=== PATIENT | female | born 1945 | race Caucasian/White ===

== ENCOUNTER 2016-11-06 13:26 | Emergency (ER) | payer OTHER ==
[~2016-11-06] VITALS: Ht 162.5 cm; Wt 81.6 kg
[~2016-11-06 13:26] MED LIST: ALBUTEROL2.5 MG/0.5 INH; ANXIETY; ARTHRITIS MED; ASPERCREME76.5 GM TP; ASPIR-TRIN325 MG PO; ATARAX,VISTARIL10 MG PO; ATIVAN0.5 MG PO; B12,B-12,B 12500 MC1 PO; CEFAZOLIN1 G1 IV; CELEXA10 MG PO; CELEXA40 MG PO; CHEWABLE VITE1 CTB PO; CIPROFLOXACIN500 M4 PO; COLACE100 MG PO; COMPAZINE10 M1 PO; DEPRESSION; HUMALOG100 U/ML SC; MAPAP325 MG PO; METRONIDAZOLE500 M1 PO; MOTRIN800 MG PO; NORCO 10-325 T1 EACH PO; NORCO 5-325 TA1 EACH; Percocet 325 MG1 TAB PO; SENNA S PO; SLEEPING; TYLENOL325 M2 PO; VICODIN 5/500 505 MG PO; VISTARIL25 MG PO; VITAMIN C500 M6 PO; VITAMIN D-32000 UNI1 PO; XANAX0.25 MG PO; ZANAFLEX4 M1 PO; ZOCOR20 MG PO
[2016-11-06] MEDS ORDERED: ASPIRIN ADULT L81 M2 PO (13:45)
[2016-11-06] MEDS ORDERED: MULTI-VITAMIN1 EACH PO (13:46)
[2016-11-06] MEDS ORDERED: SIMVASTATIN10 MG PO (13:47)
[2016-11-06] MEDS ORDERED: HUMALOG MI100 UNIT/1 SQ (13:47)
[2016-11-06] MEDS ORDERED: VITAMIN D50000 I3 PO (13:48)
[2016-11-06] MEDS ORDERED: DULOXETINE HCL60 MG PO (13:48)
[2016-11-06] MEDS ORDERED: LOSARTAN POTASS25 M1 PO (13:48)
[2016-11-06] MEDS ORDERED: OYSTER SHELL CA1 T20 PO (13:49)
[2016-11-06 14:58] LABS: HEMATOCRIT 30.4 % (37.0-47.0); HEMOGLOBIN 10.2 g/dl (12.0-16.0); MEAN CELL VOLUME 86.9 fl (81.0-99.0); MEAN CORPUSCULAR HGB 29.1 pg (27.0-31.0); MEAN CORPUSCULAR HGB CONC 33.6 g/dl (33.0-37.0); MEAN PLATELET VOLUME 10.2 fl (9.6-12.3); PLATELET COUNT AUTOMATED 140 10*3/uL (130-400); RED CELL DISTRI WIDTH 13.7 % (0-14.5)
[2016-11-06 15:19] LABS: ALBUMIN 3.4 gm/dl (3.1-4.5); ALKALINE PHOSPHATASE 118 U/L (45-117); BILIRUBIN, TOTAL 1.2 mg/dl (0.2-1.0); BUN 18 mg/dl (7-24); CARBON DIOXIDE 27 mmol/L (21-32); CHLORIDE 103 mmol/L (98-107); EST GLOM FILT AFRICAN AMERICAN > 60 ml/min; GLUCOSE 231 mg/dL (65-99); POTASSIUM 3.9 mmol/L (3.5-5.1); SGOT/AST 15 IU/L (3-35); SGPT/ALT 10 U/L (12-78); SODIUM 139 mmol/L (136-145)
[2016-11-06 15:24] LABS: MONOCYTE # 0.8 10*3/uL (0.1-1.0); NEUTROPHIL # 0.2 10*3/uL (2.3-7.9); NEUTROPHILS 9 % (47-73); PLATELET SUFFICIENCY NORMAL (NORMAL); POLYCHROMASIA SLIGHT; TOTAL CELLS COUNTED 100 #CELLS
[2016-11-06 15:31] LABS: TROPONIN I < 0.015 ng/ml (<0.045)
[2016-11-06 16:18] LABS: BILIRUBIN NEGATIVE (NEGATIVE); BLOOD NEGATIVE (NEGATIVE); CLARITY SL CLOUDY (CLEAR); COLOR YELLOW (YELLOW); GLUCOSE NEGATIVE (NEGATIVE); KETONE NEGATIVE (NEGATIVE); LEUKO ESTERASE NEGATIVE (NEGATIVE); NITRITE NEGATIVE (NEGATIVE); PH 5.5 (5.0-9.0); PROTEIN TRACE (NEGATIVE); SPECIFIC GRAVITY 1.015 (1.005-1.030)
[2016-11-06 16:37] LABS: EPITHELIAL CELLS 0-2; MUCOUS 1+; RBC 0-2 rbc/hpf (0-2); WBC 0-2 wbc/hpf (0-5)
[2016-11-06 16:38] LABS: URINE REFLEX COMMENT NO (NO)
[2016-11-06] MEDS ORDERED: CEPHALEXIN500 M1 PO (16:46)
[2016-11-06] MEDS ORDERED: ZOFRAN ODT4 MG SL (16:46)
== END 2016-11-06 17:05 | disposition home or self-care (01) ==
LOC: ED 13:26
PROVIDERS: Nurse Practitioner Family
DX: S60.362A Insect bite (nonvenomous) of left thumb, initial encounter (principal); R11.2 Nausea with vomiting, unspecified; Z90.49 Acquired absence of other specified parts of digestive tract; Z79.4 Long term (current) use of insulin; Z79.82 Long term (current) use of aspirin; Z91.011 Allergy to milk products; W57.XXXA Bitten or stung by nonvenomous insect and other nonvenomous arthropods, initial encounter; Y93.89 Activity, other specified; Y92.9 Unspecified place or not applicable; Y99.9 Unspecified external cause status

== ENCOUNTER 2016-11-08 17:11 | Inpatient (IN) | payer OTHER ==
[~2016-11-08] VITALS: Ht 162.6 cm; Wt 88.2 kg
--- NOTE | ~2016-11-08 | DS ---
[place], [place] DISCHARGE SUMMARY NAME: AYDEN VERDUZCO UNIT #: [id number] ROOM: 523 DOCTOR: ABRAHAN ROMANO MD BIRTHDATE: [birth year] DOS: 11/13/2016 DIAGNOSES: 1. Pancytopenia of unknown etiology. The patient to have a bone marrow biopsy as an outpatient. 2. Neutropenic fever, which has resolved. ANC up to 1600. 3. Type 2 diabetes mellitus, insulin-dependent, controlled. 4. Chronic abdominal pain from abdominal tumor. 5. Major depression, recurrent. DISCHARGE MEDICATIONS: Will be Ceftin 250 twice daily for 5 days, Zanaflex 4 mg daily p.r.n., simvastatin 10 daily, losartan 25 daily, aspirin 81 daily, [place] 7.5 t.i.d., duloxetine 60 daily, hydroxyzine 10 t.i.d., calcium with vitamin D 500 three times a day, Colace 100 b.i.d., insulin 75/25 30 units subq twice a day, vitamin B12 tablets daily, multivitamin tablet daily, vitamin D 50,000 units once a week. HOSPITAL COURSE: This patient is known to us, she was brought into the office the day of admission. A blood count was done, was pretty low at 1.2. She was also running a low grade fever and therefore, the patient was admitted to the hospital. Please refer to the H and P of Dr. Ramos for further details. The patient was placed on neutropenic precautions. Dr. Pacheco was consulted. Antibiotics were started for neutropenic fever. Pancultured. Cultures have come back negative. The fever has resolved and the neutropenia has corrected. The ANC is up to 1600. The plan therefore is to discharge her to home today to follow up as an outpatient with Dr. Pacheco. The patient may require a bone marrow biopsy as an outpatient. She did also have multiple folliculitis lesions on her legs and abdomen, which have dried up, but I am going to place her on the cephalexin for a few more days, which she was given recently in the Emergency Room. [place], [place] DISCHARGE SUMMARY NAME: AYDEN VERDUZCO UNIT #: [id number] ROOM: 523 DOCTOR: ABRAHAN ROMANO MD BIRTHDATE: [birth year] ABRAHAN ROMANO MD CM:JEWELS 24 ABRAHAN ROMANO MD 11/13/16 1225 interface
--- NOTE | ~2016-11-08 | PR ---
[place], [place] PROGRESS NOTE NAME: AYDEN VERDUZCO [facility] #: [id number] UNIT #: [id number] ROOM: 523 DOCTOR: JRERI ODELL MD BIRTHDATE: [birth year] DOS: 11/12/2016 SUBJECTIVE: The patient is doing better. Her counts are getting better. REVIEW OF SYSTEMS: HEENT: No trouble swallowing. No double vision. No loss of vision. No pain. ENT AND RESPIRATORY: No wheeze. No change in voice. No cough. No shortness of breath. No coughing up blood. No epistaxis. CARDIOLOGIC: No chest pain. No dizziness. No irregular heartbeat. No leg edema. No palpitations. No shortness of breath. HEMATOLOGIC AND LYMPH: No past transfusion. No fatigue. No loss of appetite. No easy bruising. GASTROENTEROLOGIC: No change in bowel habits. No vomiting blood. No abdominal cramping. No nausea. No vomiting. No diarrhea. No constipation. No blood in stool. FEMALE REPRODUCTIVE: No dyspareunia. No pelvic pain. MUSCULOSKELETAL: No back pain. No muscle pain or weakness. No tingling/numbness. UROLOGIC: No pain with urination. No difficulty urinating. No frequent urination. NEUROLOGIC: No burning pain in feet. No trouble with coordination. No loss of consciousness. No headache. No tingling/numbness. No memory loss. PHYSICAL EXAMINATION: GENERAL: Pleasant woman, in no apparent distress. VITAL SIGNS: Stable. She is afebrile. HEENT: Normocephalic, atraumatic NECK AND THYROID: Supple. No JVD, thyromegaly, or lymphadenopathy. HEART: Normal S1, S2. Regular rate and rhythm. LUNGS: Clear to auscultation and percussion. ABDOMEN: Soft. Nontender, nondistended. Bowel sounds present. EXTREMITIES: Normal ROM. No clubbing. No edema. LABORATORY DATA: White count of 3.2, hemoglobin 8.1, hematocrit 24.2, platelet count 159,000 with ANC of 1800. Liver, spleen scan showed borderline spleen enlargement. ASSESSMENT: 1. Pancytopenia, which is getting much better with improvement in the ANC. 2. Neutropenic fever, which has resolved. 3. Type 2 diabetes mellitus. 4. Benign essential hypertension. 5. Borderline spleen enlargement. PLAN: The patient's overall condition is getting better. Her pancytopenia could be secondary to bone marrow suppression from sepsis versus borderline splenomegaly. We will just keep a close watch at this time and follow her as outpatient. Her blood cultures have been negative. If she continues to be pancytopenic, then we will get a bone marrow biopsy done. I had a detailed discussion with the patient about it, seemed to understand it. Ample time was [place], [place] PROGRESS NOTE NAME: DAXAYDEN Saenz UNIT #: [id number] ROOM: 523 DOCTOR: JOSE R COELHO,JERRI BIRTHDATE: [birth year] given to the patient to ask me questions. We will follow. Discussed with Dr. Pino. JERRI ODELL MD CM:FELECIA [phone] JERRI ODELL MD 11/12/16 1729 interface
--- NOTE | ~2016-11-08 | PR ---
[place], [place] PROGRESS NOTE [id number] UNIT #: [id number] ROOM: 523 DOCTOR: JERRI ODELL MD BIRTHDATE: [birth year] DOS: 11/13/2016 SUBJECTIVE: The patient is doing better. Denies any fever or chills. PHYSICAL EXAMINATION GENERAL: She is a pleasant woman in no apparent distress. VITAL SIGNS: Stable. She is afebrile. HEENT: Normocephalic, atraumatic NECK AND THYROID: Supple. No JVD, thyromegaly, or lymphadenopathy. HEART: Normal S1, S2. Regular rate and rhythm. LUNGS: Clear to auscultation and percussion. ABDOMEN: Soft. Nontender, nondistended. Bowel sounds present. EXTREMITIES: Normal ROM. No clubbing. No edema. LABORATORY DATA: White count of 3.3, hemoglobin of 8.5, hematocrit 25.5, platelet count of 176, ANC of 1600. ASSESSMENT: 1. Neutropenia, which is resolving. 2. Anemia, probably of chronic disease. 3. Thrombocytopenia, resolved. PLAN: She will be following with outpatient. We will keep a close watch on her counts. She may need a bone marrow biopsy for further evaluation. I advised her if any fever, chills, weakness, or tiredness, to call us right away, otherwise close followup. JERRI ODELL MD CM:PNTRANS [id number] JERRI ODELL MD 11/13/16 2315 interface
--- NOTE | ~2016-11-08 | PR ---
[place], [place] PROGRESS NOTE NAME[id number] UNIT #: [id number] ROOM: 523 DOCTOR: JERRI ODELL MD BIRTHDATE: [birth year] DOS: 11/10/2016 SUBJECTIVE: The patient is doing better, she has fever, ____, feeling good now. REVIEW OF SYSTEMS HEENT: No trouble swallowing. No double vision. No loss of vision. No pain. ENT AND RESPIRATORY: No wheeze. No change in voice. No cough. No shortness of breath. No coughing up blood. No epistaxis. CARDIOLOGIC: No chest pain. No dizziness. No irregular heartbeat. No leg edema. No palpitations. No shortness of breath. HEMATOLOGIC AND LYMPH: No past transfusion. No fatigue. No loss of appetite. No easy bruising. GASTROENTEROLOGIC: No change in bowel habits. No vomiting blood. No abdominal cramping. No nausea. No vomiting. No diarrhea. No constipation. No blood in stool. FEMALE REPRODUCTIVE: No dyspareunia. No pelvic pain. MUSCULOSKELETAL: No back pain. No muscle pain or weakness. No tingling/numbness. UROLOGIC: No pain with urination. No difficulty urinating. No frequent urination. NEUROLOGIC: No burning pain in feet. No trouble with coordination. No loss of consciousness. No headache. No tingling/numbness. No memory loss. PHYSICAL EXAMINATION: GENERAL: Pleasant woman in no apparent distress. VITAL SIGNS: Stable. She is afebrile. HEENT: Normocephalic, atraumatic NECK AND THYROID: Supple. No JVD, thyromegaly, or lymphadenopathy. HEART: Normal S1, S2. Regular rate and rhythm. LUNGS: Clear to auscultation and percussion. ABDOMEN: Soft. Nontender, nondistended. Bowel sounds present. EXTREMITIES: Normal ROM. No clubbing. No edema. Labs are pending from today. ASSESSMENT: 1. Neutropenic fever. 2. Pancytopenia of unknown etiology. 3. Hypertension. 4. Diabetes mellitus. PLAN: We will wait for today's blood work to come back. In the meantime, a liver-spleen scan has been ordered. We will continue broad-spectrum antibiotics as her blood cultures have been done. She may need further evaluation if her counts do not improve. In the meantime, medications have also been reviewed. Depending on the blood work for further intervention. Discussed with the patient. [place], [place] PROGRESS NOTE NAME: AYDEN VERDUZCO UNIT #: [id number] ROOM: 523 DOCTOR: JERRI ODELL MD BIRTHDATE: [birth year] JERRI ODELL MD CM:PNTRANS [id number] JERRI ODELL MD 11/11/16 0053 interface
--- NOTE | ~2016-11-08 | PR ---
[place], [place] PROGRESS NOTE NAME: AYDEN VERDUZCO [facility] #: [id number] UNIT #: [id number] ROOM: 523 DOCTOR: GAMA ADAMS MD BIRTHDATE: [birth year] DOS: 11/11/2016 SUBJECTIVE: The patient continues to feel better. OBJECTIVE: GENERAL APPEARANCE: The patient is alert and oriented x 3, in no visible distress, generalized weakness. VITAL SIGNS: Blood pressure 146/60, heart rate 82 beats per minute, breathing 20 times per minute, temperature 98.9 degrees Fahrenheit. HEENT AND NECK: Exam within normal limits. CARDIOVASCULAR SYSTEM: Heart rate is regular in rate and rhythm. S1 and S2 normally audible. LUNGS: Clear to auscultation. ABDOMEN: Soft, nontender. No obvious organomegaly. Bowel sounds are present. EXTREMITIES: Without significant cyanosis or edema. IMPRESSION: 1. The patient neutropenic fever, which has resolved. The patient is afebrile and her white cell count has improved to 2600 and neutrophils have improved to 42%. 2. Pancytopenia, which is improving. 3. Type 2 diabetes mellitus. Blood sugars are well controlled. 4. Benign essential hypertension with well controlled blood pressures with treatment. 5. The patient with asymptomatic hypocalcemia. 6. Generalized weakness and disability. The patient worked with physical therapy. 7. Hypokalemia, normalized. GAMA ADAMS MD CM:PNTRANS [phone] GAMA ADAMS MD 11/12/16 0345 interface
--- NOTE | ~2016-11-08 | WRIGHTHP ---
[place], [place] PATIENT HISTORY AND PHYSICAL EXAM NAME: AYDEN VERDUZCO [facility] #: [id number] UNIT #: [id number] ROOM: 523 DOCTOR: GAMA ADAMS MD BIRTHDATE: [birth year] DOS: 11/08/2016 HISTORY OF PRESENT ILLNESS: 1. The patient is a 71-year-old female with a past medical history of obesity. 2. Failure to thrive, generalized weakness and fall at home. 3. Hypertension. 4. Type 2 diabetes mellitus. 5. Major depression, recurrent. The patient came in and was evaluated in the Emergency Department because she was found to have a low white cell count. The patient was found to be a poor historian and she only had some complaints of nausea. The patient was found to be neutropenic and also was febrile and she was admitted for neutropenic fever with neutropenic precautions. After admission, the patient has no new complaints. She is starting to feel slightly better. REVIEW OF SYSTEMS: LUNGS: Without shortness of breath or wheezing. GASTROINTESTINAL: No nausea, vomiting, diarrhea, constipation. CARDIOVASCULAR: No chest pains or palpitations. FAMILY HISTORY: Noncontributory. HOME MEDICATIONS: Losartan, insulin, Cymbalta, aspirin. ALLERGIES: No known drug allergies. PHYSICAL EXAMINATION: VITAL SIGNS: Blood pressure 132/50, heart rate 82 beats per minute, breathing 18 times per minute, temperature 98 degrees Fahrenheit, going up to 99.3 degrees Fahrenheit. GENERAL APPEARANCE: Alert and oriented, but a very poor historian, obese with generalized weakness. HEENT AND NECK: Extraocular movements are intact. Sclerae are anicteric. Oral mucosa is moist and clean. No obvious facial weakness. Neck is supple without any lymphadenopathy. No thyromegaly. No JVD. No carotid arterial bruits. LUNGS: Clear to auscultation. No wheezing. No rhonchi. CARDIOVASCULAR SYSTEM: Heart rate is regular in rate and rhythm. S1 and S2 normally audible. No significant murmur or any other abnormal cardiac sounds. ABDOMEN: Soft, nontender. No obvious organomegaly. Bowel sounds are present. No obvious herniation. EXTREMITIES: Patient has some insect bites noninfected on her extremities. CENTRAL NERVOUS SYSTEM: Alert and oriented x3. Cranial nerves II-XII are intact. Speech is normal. The patient is able to move all extremities. Normal muscle strength. Deep tendon reflexes are equal on both sides. Plantar's were downgoing. The patient not complaining of any chest pain, no shortness of breath. No other GI or urinary symptoms. LABORATORY DATA: B12, folic acid normal, ferritin high. Iron level low at 36, [place], [place] PATIENT HISTORY AND PHYSICAL EXAM NAME: AYDEN VERDUZCO UNIT #: [id number] ROOM: 523 DOCTOR: GAMA ADAMS MD BIRTHDATE: [birth year] hemoglobin low at 8.1 and reducing white cell count low at 1300 and reducing with neutropenia and lymphocytosis. IMPRESSION: 1. The patient with neutropenic fever with resolved fever with antibiotics. The patient is afebrile now and being followed by Dr. Pacheco, the pipe finisher. We are taking neutropenic precautions. The patient wants to maintain a DNR-CC code status. The only complaint she had was nausea and somewhat feeling unwell, which is improving during her stay at the hospital. 2. Adult failure to thrive and generalized disability and weakness. The patient was started on physical therapy. 3. Type 2 diabetes mellitus. Monitor blood sugars and treat accordingly. 4. The patient kept on no concentrated sweet diet. 5. Benign essential hypertension. Blood pressure being monitored and treated and treatment will be adjusted accordingly. 6. The patient wants to maintain a DNR comfort care code status. She said that she does not want intubation, mechanical ventilation or even CPR. 7. The patient has some bug bites apparently on her limbs, which do not appear to be infected and do not need any treatment, should heal on its own. 8. Asymptomatic hypocalcemia. 9. Iron deficiency with iron level of 36 along with anemia with hemoglobin of 8.1. 10. Pancytopenia from uncertain etiology. Dr. Pacheco following patient has a low white cell count, low hemoglobin and platelets are also low, and she has absolute neutropenia. 11. Type 2 diabetes mellitus. I will monitor blood sugars and treat accordingly and keep her on no concentrated sweet diet. 12. Adult failure to thrive and obesity and generalized weakness. The patient works with physical therapy. We will also take bedsore precautions turn every 2 hours using an air mattress and take fall precautions. 13. Benign essential hypertension. Blood pressures will be monitored and treated accordingly. Home meds to be continued. GAMA ADAMS MD CM:HISPHYS:PATIENT HISTORY AND PHYSICAL EXAMINATION [id number] GAMA ADAMS MD 11/09/16 1942 interface
--- NOTE | ~2016-11-08 | PR ---
[place], [place] PROGRESS NOTE NAME: AYDEN VERDUZCO [facility] #: [id number] UNIT #: [id number] ROOM: 523 DOCTOR: ABRAHAN ROMANO MD BIRTHDATE: [birth year] DOS: 11/13/2016 SUBJECTIVE: The patient is doing well, does not have any new complaints. OBJECTIVE: VITAL SIGNS: Blood pressure is 148/52, pulse of 78, respirations 18, temperature 98.5. LUNGS: Clear. HEART: Regular. ABDOMEN: Soft. EXTREMITIES: Without any edema. LABORATORY DATA: White cell count is up to 3.3, hemoglobin 8.5, platelets 176. ASSESSMENT AND PLAN: 1. Pancytopenia. The patient is much better, improved and stable. 2. Folliculitis, which is resolved. The patient is stable and can be discharged to home today. ABRAHAN ROMANO MD CM:PNTRANS [id number] ABRAHAN ROMANO MD 11/13/16 1444 interface
--- NOTE | ~2016-11-08 | PR ---
[place], [place] PROGRESS NOTE NAME: AYDEN VERDUZCO [facility] #: [id number] UNIT #: [id number] ROOM: 523 DOCTOR: JERRI ODELL MD BIRTHDATE: [birth year] DOS: 11/11/2016 SUBJECTIVE: The patient is doing much better. REVIEW OF SYSTEMS HEENT: No trouble swallowing. No double vision. No loss of vision. No pain. ENT AND RESPIRATORY: No wheeze. No change in voice. No cough. No shortness of breath. No coughing up blood. No epistaxis. CARDIOLOGIC: No chest pain. No dizziness. No irregular heartbeat. No leg edema. No palpitations. No shortness of breath. HEMATOLOGIC AND LYMPH: No past transfusion. No fatigue. No loss of appetite. No easy bruising. GASTROENEROLOGIC: No change in bowel habits. No vomiting blood. No abdominal cramping. No nausea. No vomiting. No diarrhea. No constipation. No blood in stool. FEMALE REPRODUCTIVE: No dyspareunia. No pelvic pain. MUSCULOSKELETAL: No back pain. No muscle pain or weakness. No tingling/numbness. UROLOGIC: No pain with urination. No difficulty urinating. No frequent urination. NEUROLOGIC: No burning pain in feet. No trouble with coordination. No loss of consciousness. No headache. No tingling/numbness. No memory loss. PHYSICAL EXAMINATION: GENERAL: She is a pleasant woman in no acute distress. VITAL SIGNS: Stable. She is afebrile. HEENT: Normocephalic, atraumatic NECK AND THYROID: Supple. No JVD, thyromegaly, or lymphadenopathy. HEART: Normal S1, S2. Regular rate and rhythm. LUNGS: Clear to auscultation and percussion. ABDOMEN: Soft. Nontender, nondistended. Bowel sounds present. EXTREMITIES: Normal ROM. No clubbing. No edema. LABORATORY DATA: White count 2.6, hemoglobin 8.4, hematocrit 25.4, platelet count 135,000 with an ANC of 1100. ASSESSMENT: 1. Pancytopenia, which is improving. 2. Type 2 diabetes mellitus. 3. Benign essential hypertension. PLAN: Her ANC has got better. Overall, she is doing better. We will continue broad spectrum antibiotics. We will take off neutropenic precautions. We will wait for the blood cultures. If they come negative, may get off broad spectrum antibiotics. I had a detailed discussion with the patient about it. Ample time was given to the patient to ask me questions. [place], [place] PROGRESS NOTE NAME: AYDEN VERDUZCO UNIT #: [id number] ROOM: 523 DOCTOR: JERRI ODELL MD BIRTHDATE: [birth year] JERRI ODELL MD CM:PNTRANS [id number] JERRI ODELL MD 11/11/16 1225 interface
--- NOTE | ~2016-11-08 | CON ---
[place], [place] REPORT OF CONSULTATION NAME: AYDEN VERDUZCO [facility] #: [id number] UNIT #: [id number] ROOM: 523 DOCTOR: JERRI ODELL MD BIRTHDATE: [birth year] DOS: 11/09/2016 HISTORY OF PRESENT ILLNESS: The patient is a pleasant 71-year-old woman came to the Emergency Department because of low white count. The patient is a poor historian, unable to give detailed history. She she was found to be neutropenic. Subsequently consulted for further evaluation and management. PAST MEDICAL HISTORY: Significant for hypertension, type 2 diabetes, major depression, anxiety disorder, history of bacteremia due to gram-negative bacteremia, history of cholangitis, cholelithiasis, common bile duct dilatation, history of elevated liver enzymes, status post fall, fracture of the left femur and history of questionable gastric cancer. PAST SURGICAL HISTORY: Cholecystectomy. SOCIAL HISTORY: No smoking or drinking. FAMILY HISTORY: Significant for cancer, coronary artery disease. REVIEW OF SYSTEMS: CONSTITUTIONAL: No chills. No fatigue. No fever. No loss of appetite. No night sweats. No weakness. No weight loss. HEENT: No trouble swallowing. No loss of smell. No loss of hearing. No double vision. No pain. No discharge. ENT AND RESPIRATORY: No wheeze. No sore throat. No change in voice. No hearing loss. No nose bleed. No cough. No trouble breathing through nose. No shortness of breath. No coughing up blood. No epistaxis. CARDIOVASCULAR: No chest pain. No dizziness. No irregular heartbeat. No leg edema. No pain in legs while walking. No palpitations. No shortness of breath. DERMATOLOGIC: No acne. No hives. No laceration. No mole. No rash. ENDOCRINE: No cold intolerance. No diabetes. No fatigue. No hot flashes. No polydipsia. No polyuria. No urinating frequently. No weight loss. HEMATOLOGIC AND LYMPH: No fatigue. No easy bruising. GASTROENTEROLOGIC: No change in bowel habits. No indigestion. No frequent bloating. No vomiting blood. No abdominal cramping. No nausea. No heartburn. No vomiting. No abdominal pain. No dysphagia. No diarrhea. No constipation. No blood in stool. FEMALE REPRODUCTIVE: No vaginal itching. No difficulty urinating. No heavy periods. No dyspareunia. No sexually active. No dysmenorrhea. No pelvic pain. No breast pain. No nipple discharge. No abnormal vaginal discharge. No hot flashes. MUSCULOSKELETAL: No back pain. No muscle pain or weakness. No neck pain. No tingling/numbness. No swelling/bruising. No osteoporosis treatment. OPTHALMOLOGIC: No double vision. No diminished vision. No loss of vision. UROLOGIC: No dysuria. No frequent nighttime urination. No irregular periods. No pain with urination. No difficulty urinating. No blood in urine. No frequent urination. No urinary incontinence. NEUROLOGIC: No loss of sensation in specific body area. No vertigo. No [place], [place] REPORT OF CONSULTATION NAME: AYDEN VERDUZCO UNIT #: [id number] ROOM: 523 DOCTOR: JERRI ODELL MD BIRTHDATE: [birth year] burning pain in feet. No trouble with balance. No trouble with coordination. No loss of consciousness. No loss of feeling/power. No confusion. No headache. No tingling/numbness. PSYCHOLOGIC: No tinnitus. No headaches. No shortness of breath. No weight decrease. No nausea. No vomiting. No abdominal discomfort. No constipation. No diarrhea. No depression. No anxiety. PHYSICAL EXAMINATION: GENERAL: Pleasant woman in no apparent distress. VITAL SIGNS: Stable, low grade fever. HEENT: Oral mucosa appears intact. The external ears are normal in appearance. Nares are patent without lesions, exudates, erythema, or inflammation. Tongue is symmetrical. Uvula is midline. NECK AND THYROID: Neck supple without palpable masses. Trachea is midline. No thyromegaly. No carotid bruit or JVD. BREASTS: Normal. Nipples unremarkable. No drainage. No lumps felt on either side. HEART: Normal S1, S2, without significant murmur, rub, or gallop. LUNGS: Clear to auscultation and percussion with good air entry bilaterally. The patient is breathing easily without the use of accessory muscles. Diaphragmatic excursions are intact. ABDOMEN: No costovertebral angle tenderness. Soft. No organomegaly or masses. Nontender. No hernias present. Liver and spleen are not palpable. LYMPHATIC: No adenopathy noted in the cervical, supraclavicular, axillary, or inguinal regions. NEUROLGIC: Nonfocal. Oriented to person, place, and time. MENTAL STATUS: Appropriate for mood and affect. PERIPHERAL PULSES: No varicosities. Femoral and pedal pulses are palpable. EXTREMITIES: Without cyanosis, clubbing, or edema. No gross anomalies. LABORATORY DATA: White count of 1.3, hemoglobin of 8.1, hematocrit 24.4, platelet count of 112,000, ANC of 100. ASSESSMENT: 1. Pancytopenia of unknown etiology. 2. Neutropenic fever. 3. Type 2 diabetes mellitus. PLAN: Neutropenic precautions and broad spectrum antibiotics. Review peripheral smears. Liver, spleen scan and transfusion if the hemoglobin and hematocrit drops further. Depending on review of the workup, further intervention. I had a detailed discussion with the patient about it, seemed to understand. Ample time was given for the patient to ask me questions. We will follow. Thanks for consulting and letting me participate in the care of this interesting patient. [place], [place] REPORT OF CONSULTATION NAME: AYDEN VERDUZCO UNIT #: [id number] ROOM: 523 DOCTOR: JERRI ODELL MD BIRTHDATE: [birth year] JERRI ODELL MD CM:CONSTR:REPORT OF CONSULTATION 0753 11/10/16 0953 interface
--- NOTE | ~2016-11-08 | PR ---
[place], [place] PROGRESS NOTE NAME: AYDEN VERDUZCO UNIT #: [id number] ROOM: 523 DOCTOR: GAMA ADAMS MD BIRTHDATE: [birth year] DOS: 11/10/2016 SUBJECTIVE: The patient is feeling better, no new complaints. OBJECTIVE: VITAL SIGNS: Blood pressure 128/54, heart rate of 86 beats per minute, breathing normally, afebrile. GENERAL: Generalized weakness. HEENT AND NECK: Exam within normal limits. CARDIOVASCULAR SYSTEM: Heart rate is regular in rate and rhythm. S1 and S2 normally audible. LUNGS: Clear to auscultation. ABDOMEN: Soft, nontender. No obvious organomegaly. Bowel sounds are present. EXTREMITIES: Without significant cyanosis or edema. IMPRESSION: 1. The patient with pancytopenia and neutropenic fever, white cell count has improved to 2000 today with neutrophils at 29%, which is encouraging. We are taking neutropenic precautions and Dr. Pacheco, inpatient nursing aide was also following her. 2. Type 2 diabetes mellitus with reasonably controlled blood sugars ranging between 120-150 mostly. The patient also on a no concentrated sweet diet. 3. Adult failure to thrive and generalized weakness and fall at home. We are taking fall precautions, bed sore precautions, turning her every 2 hours and following her carefully. 4. The patient working with physical therapy. 5. Benign essential hypertension with controlled blood pressures. Blood pressure is being checked and monitored and treated. 6. The patient decided to keep a comfort care code status. 7. Asymptomatic hypocalcemia. GAMA ADAMS MD CM:PNTRANS [id number] GAMA ADAMS MD 11/10/162140 interface
[~2016-11-08 17:11] MED LIST changes: +ASPIRIN ADULT L81 M2 PO; +CEPHALEXIN500 M1 PO; +DULOXETINE HCL60 MG PO; +HUMALOG MI100 UNIT/1 SQ; +LOSARTAN POTASS25 M1 PO; +MULTI-VITAMIN1 EACH PO; +OYSTER SHELL CA1 T20 PO; +SIMVASTATIN10 MG PO; +VITAMIN D50000 I3 PO; +ZOFRAN ODT4 MG SL
[2016-11-08 17:21] VITALS: BP 157/63
[2016-11-08 18:36] LABS: EOS % 1.2 % (1.0-4.0); HEMATOCRIT 26.3 % (37.0-47.0); LYMPH # 0.9 10*3/uL (1.3-4.4); MEAN CELL VOLUME 85.1 fl (81.0-99.0); MEAN CORPUSCULAR HGB 29.1 pg (27.0-31.0); MEAN CORPUSCULAR HGB CONC 34.2 g/dl (33.0-37.0); MEAN PLATELET VOLUME 9.9 fl (9.6-12.3); MONO # 0.6 10*3/uL (0.1-1.0); MONO % 34.6 % (3.0-9.0); NEUT # 0.1 10*3/uL (2.3-7.9); NEUT % 5.6 % (47.0-73.0); PLATELET COUNT AUTOMATED 123 10*3/uL (130-400); RED BLOOD COUNT 3.09 10*6/uL (4.10-5.10); RED CELL DISTRI WIDTH 13.3 % (0-14.5)
[2016-11-08 18:41] LABS: WHITE BLOOD COUNT 1.6 10*3/uL (4.8-10.8)
[2016-11-08 18:53] LABS: ALKALINE PHOSPHATASE 101 U/L (45-117); BILIRUBIN, TOTAL 0.7 mg/dl (0.2-1.0); BUN 17 mg/dl (7-24); CARBON DIOXIDE 25 mmol/L (21-32); CHLORIDE 106 mmol/L (98-107); EST GLOM FILT AFRICAN AMERICAN > 60 ml/min; GLUCOSE 224 mg/dL (65-99); POTASSIUM 3.7 mmol/L (3.5-5.1); SGOT/AST 19 IU/L (3-35); SGPT/ALT 14 U/L (12-78); SODIUM 141 mmol/L (136-145); TOTAL PROTEIN 6.5 gm/dL (6.4-8.2)
[2016-11-08 18:58] LABS: ATYPICAL LYMPHS 1 % (0-0); EOSINOPHILS 1 % (1-4); LYMPHOCYTE # 1.2 10*3/uL (1.3-4.4); MONOCYTE # 0.3 10*3/uL (0.1-1.0); NEUTROPHIL # 0.1 10*3/uL (2.3-7.9); NEUTROPHILS 4 % (47-73); TOTAL CELLS COUNTED 100 #CELLS
[2016-11-08 18:59] LABS: POLYCHROMASIA SLIGHT
[2016-11-08 19:00] LABS: PLATELET SUFFICIENCY LOW (NORMAL)
[2016-11-08 19:10] VITALS: BP 141/56
[2016-11-08 20:09] LABS: BILIRUBIN NEGATIVE (NEGATIVE); BLOOD NEGATIVE (NEGATIVE); CLARITY SL CLOUDY (CLEAR); COLOR YELLOW (YELLOW); GLUCOSE NEGATIVE (NEGATIVE); KETONE NEGATIVE (NEGATIVE); LEUKO ESTERASE NEGATIVE (NEGATIVE); NITRITE NEGATIVE (NEGATIVE); PH 5.5 (5.0-9.0); PROTEIN 1+ (NEGATIVE); UROBILINOGEN 0.2 E.U./dl (0.2-1.0)
[2016-11-08 20:18] LABS: BACTERIA 2+; EPITHELIAL CELLS 21-30; URINE REFLEX COMMENT YES (NO)
[2016-11-08 22:30] VITALS: BP 151/64
[2016-11-09 06:44] LABS: HEMATOCRIT 24.4 % (37.0-47.0); HEMOGLOBIN 8.1 g/dl (12.0-16.0); MEAN CELL VOLUME 85.9 fl (81.0-99.0); MEAN CORPUSCULAR HGB 28.5 pg (27.0-31.0); MEAN CORPUSCULAR HGB CONC 33.2 g/dl (33.0-37.0); NUCLEATED RED BLOOD CELL 2.4 % (0.0-0.0); PLATELET COUNT AUTOMATED 112 10*3/uL (130-400); RED BLOOD COUNT 2.84 10*6/uL (4.10-5.10); RED CELL DISTRI WIDTH 13.4 % (0-14.5)
[2016-11-09 07:11] LABS: BUN 13 mg/dl (7-24); CARBON DIOXIDE 26 mmol/L (21-32); CHLORIDE 109 mmol/L (98-107); EST GLOM FILT AFRICAN AMERICAN > 60 ml/min; GLUCOSE 154 mg/dL (65-99); IRON 36 ug/dL (50-170); IRON SATURATION 20 %; POTASSIUM 3.5 mmol/L (3.5-5.1); SODIUM 143 mmol/L (136-145); UIBC 136 ug/dL (110-365)
[2016-11-09 07:13] LABS: EOSINOPHILS 2 % (1-4); LYMPHOCYTE # 0.7 10*3/uL (1.3-4.4); METAMYELOCYTES 2 % (0-0); MONOCYTE # 0.5 10*3/uL (0.1-1.0); NEUTROPHIL # 0.1 10*3/uL (2.3-7.9); NEUTROPHILS 8 % (47-73); PLATELET SUFFICIENCY LOW (NORMAL); POLYCHROMASIA SLIGHT; TOTAL CELLS COUNTED 50 #CELLS
[2016-11-09 07:15] LABS: WHITE BLOOD COUNT 1.3 10*3/uL (4.8-10.8)
[2016-11-09 08:00] VITALS: BP 138/52
[2016-11-09 08:26] LABS: FERRITIN 299.5 ng/mL (10.0-291.0)
[2016-11-09 08:27] LABS: FOLIC ACID > 24.00 ng/mL (>5.38)
[2016-11-09 12:00] VITALS: BP 146/70
[2016-11-09 16:00] VITALS: BP 132/50
[2016-11-09] MEDS ORDERED: NORCO 7.5-3251 EACH PO (18:19)
[2016-11-09] MEDS ORDERED: COLACE100 MG PO (18:27)
[2016-11-09 20:00] VITALS: BP 153/57
[2016-11-10] VITALS: BP 138/45
[2016-11-10 07:34] LABS: HEMATOCRIT 24.8 % (37.0-47.0); HEMOGLOBIN 8.3 g/dl (12.0-16.0); MEAN CELL VOLUME 86.7 fl (81.0-99.0); MEAN CORPUSCULAR HGB CONC 33.5 g/dl (33.0-37.0); MEAN PLATELET VOLUME 9.8 fl (9.6-12.3); RED BLOOD COUNT 2.86 10*6/uL (4.10-5.10); RED CELL DISTRI WIDTH 13.7 % (0-14.5)
[2016-11-10 07:35] LABS: PLATELET COUNT AUTOMATED 149 10*3/uL (130-400)
[2016-11-10 07:55] LABS: BUN 12 mg/dl (7-24); CARBON DIOXIDE 26 mmol/L (21-32); CHLORIDE 111 mmol/L (98-107); EOSINOPHIL # 0.1 10*3/uL (0-0.4); EOSINOPHILS 3 % (1-4); EST GLOM FILT AFRICAN AMERICAN > 60 ml/min; GLUCOSE 124 mg/dL (65-99); LYMPHOCYTE # 0.9 10*3/uL (1.3-4.4); MONOCYTE # 0.5 10*3/uL (0.1-1.0); NEUTROPHIL # 0.6 10*3/uL (2.3-7.9); NEUTROPHILS 29 % (47-73); PLATELET SUFFICIENCY NORMAL (NORMAL); POLYCHROMASIA SLIGHT; POTASSIUM 3.4 mmol/L (3.5-5.1); SODIUM 145 mmol/L (136-145); TOTAL CELLS COUNTED 100 #CELLS
[2016-11-10 08:00] VITALS: BP 128/54
[2016-11-10 12:00] VITALS: BP 140/52
[2016-11-10 16:00] VITALS: BP 125/50
[2016-11-10 20:00] VITALS: BP 140/62
[2016-11-11] VITALS: BP 147/65
[2016-11-11 06:49] LABS: EOS # 0.1 10*3/uL (0.0-0.4); EOS % 4.6 % (1.0-4.0); HEMATOCRIT 25.4 % (37.0-47.0); HEMOGLOBIN 8.4 g/dl (12.0-16.0); LYMPH % 36.7 % (27.0-41.0); MEAN CELL VOLUME 86.7 fl (81.0-99.0); MEAN CORPUSCULAR HGB 28.7 pg (27.0-31.0); MEAN CORPUSCULAR HGB CONC 33.1 g/dl (33.0-37.0); MEAN PLATELET VOLUME 9.6 fl (9.6-12.3); MONO # 0.4 10*3/uL (0.1-1.0); MONO % 15.4 % (3.0-9.0); NEUT # 1.1 10*3/uL (2.3-7.9); NEUT % 41.8 % (47.0-73.0); PLATELET COUNT AUTOMATED 135 10*3/uL (130-400); RED BLOOD COUNT 2.93 10*6/uL (4.10-5.10); RED CELL DISTRI WIDTH 13.7 % (0-14.5); WHITE BLOOD COUNT 2.6 10*3/uL (4.8-10.8)
[2016-11-11 07:21] LABS: BUN 12 mg/dl (7-24); CARBON DIOXIDE 25 mmol/L (21-32); CHLORIDE 111 mmol/L (98-107); EST GLOM FILT AFRICAN AMERICAN > 60 ml/min; GLUCOSE 104 mg/dL (65-99); POTASSIUM 3.7 mmol/L (3.5-5.1); SODIUM 145 mmol/L (136-145)
[2016-11-11 08:00] VITALS: BP 134/50
[2016-11-11 12:00] VITALS: BP 145/65
[2016-11-11 16:00] VITALS: BP 146/60
[2016-11-11 20:00] VITALS: BP 156/60
[2016-11-12] VITALS: BP 132/65; BP 155/59
[2016-11-12 06:56] LABS: EOS # 0.1 10*3/uL (0.0-0.4); EOS % 4.4 % (1.0-4.0); HEMATOCRIT 24.2 % (37.0-47.0); HEMOGLOBIN 8.1 g/dl (12.0-16.0); LYMPH # 0.9 10*3/uL (1.3-4.4); LYMPH % 27.6 % (27.0-41.0); MEAN CELL VOLUME 86.4 fl (81.0-99.0); MEAN CORPUSCULAR HGB 28.9 pg (27.0-31.0); MEAN CORPUSCULAR HGB CONC 33.5 g/dl (33.0-37.0); MEAN PLATELET VOLUME 9.1 fl (9.6-12.3); MONO # 0.4 10*3/uL (0.1-1.0); MONO % 11.9 % (3.0-9.0); NEUT # 1.8 10*3/uL (2.3-7.9); NEUT % 55.2 % (47.0-73.0); PLATELET COUNT AUTOMATED 159 10*3/uL (130-400); RED CELL DISTRI WIDTH 13.5 % (0-14.5); WHITE BLOOD COUNT 3.2 10*3/uL (4.8-10.8)
[2016-11-12 08:00] VITALS: BP 142/56
[2016-11-12 12:00] VITALS: BP 152/63
[2016-11-12 16:00] VITALS: BP 165/78
[2016-11-12 20:00] VITALS: BP 180/80
[2016-11-12 21:16] VITALS: BP 153/58
[2016-11-13] VITALS: BP 149/53
[2016-11-13 07:02] LABS: EOS # 0.2 10*3/uL (0.0-0.4); EOS % 5.8 % (1.0-4.0); HEMATOCRIT 25.5 % (37.0-47.0); HEMOGLOBIN 8.5 g/dl (12.0-16.0); LYMPH # 1.1 10*3/uL (1.3-4.4); LYMPH % 32.6 % (27.0-41.0); MEAN CELL VOLUME 86.1 fl (81.0-99.0); MEAN CORPUSCULAR HGB 28.7 pg (27.0-31.0); MEAN CORPUSCULAR HGB CONC 33.3 g/dl (33.0-37.0); MEAN PLATELET VOLUME 9.6 fl (9.6-12.3); MONO # 0.4 10*3/uL (0.1-1.0); MONO % 10.7 % (3.0-9.0); NEUT # 1.6 10*3/uL (2.3-7.9); PLATELET COUNT AUTOMATED 176 10*3/uL (130-400); RED BLOOD COUNT 2.96 10*6/uL (4.10-5.10); RED CELL DISTRI WIDTH 13.5 % (0-14.5); WHITE BLOOD COUNT 3.3 10*3/uL (4.8-10.8)
[2016-11-13 08:00] VITALS: BP 148/52
== END 2016-11-13 11:40 | disposition home or self-care (01) | DRG 809 ==
LOC: ED 17:11 → EDHOLD 20:38 → 5E 20:38
PROVIDERS: Internal Medicine; Internal Medicine Hematology & Oncology; Physician Assistant
DX: D61.818 Other pancytopenia (principal); E44.0 Moderate protein-calorie malnutrition; E11.9 Type 2 diabetes mellitus without complications; F33.9 Major depressive disorder, recurrent, unspecified; E83.51 Hypocalcemia; I10 Essential (primary) hypertension; D50.9 Iron deficiency anemia, unspecified; R62.7 Adult failure to thrive; R50.81 Fever presenting with conditions classified elsewhere; Z66 Do not resuscitate; D63.8 Anemia in other chronic diseases classified elsewhere; L73.9 Follicular disorder, unspecified; Z79.4 Long term (current) use of insulin; Z79.82 Long term (current) use of aspirin; Z79.899 Other long term (current) drug therapy; Z68.30 Body mass index [BMI] 30.0-30.9, adult

== ENCOUNTER → 2016-12-13 | Outpatient (CLI) | payer OTHER ==
[~2016-12-13] MED LIST changes: +NORCO 7.5-3251 EACH PO
[2016-12-13 14:26] LABS: BASO % 0.1 % (0.0-1.0); EOS # 0.2 10*3/uL (0.0-0.4); EOS % 3.5 % (1.0-4.0); HEMATOCRIT 34.5 % (37.0-47.0); HEMOGLOBIN 11.2 g/dl (12.0-16.0); LYMPH # 1.7 10*3/uL (1.3-4.4); LYMPH % 24.6 % (27.0-41.0); MEAN CELL VOLUME 87.1 fl (81.0-99.0); MEAN CORPUSCULAR HGB 28.3 pg (27.0-31.0); MEAN CORPUSCULAR HGB CONC 32.5 g/dl (33.0-37.0); MEAN PLATELET VOLUME 9.5 fl (9.6-12.3); MONO # 0.5 10*3/uL (0.1-1.0); MONO % 6.8 % (3.0-9.0); NEUT # 4.5 10*3/uL (2.3-7.9); NEUT % 64.6 % (47.0-73.0); PLATELET COUNT AUTOMATED 217 10*3/uL (130-400); RED BLOOD COUNT 3.96 10*6/uL (4.10-5.10); RED CELL DISTRI WIDTH 13.4 % (0-14.5); RETICULOCYTE % 2.99 % (0.50-2.50)
[2016-12-13 14:28] LABS: IRF 9.8 % (2.4-13.3); RET-He 32.3 pg (32.1-37.9)
[2016-12-13 14:43] LABS: IRON 44 ug/dL (50-170); IRON SATURATION 19 %; UIBC 184 ug/dL (110-365)
== END | disposition home or self-care (01) ==
LOC: LAB 14:00
PROVIDERS: Internal Medicine Hematology & Oncology
DX: D64.9 Anemia, unspecified (principal); D70.9 Neutropenia, unspecified

== ENCOUNTER 2017-03-27 18:42 | Emergency (ER) | payer OTHER ==
[~2017-03-27] VITALS: Wt 81.6 kg
== END 2017-03-27 20:50 | disposition home or self-care (01) ==
LOC: ED 18:42
DX: M79.89 Other specified soft tissue disorders (principal); Z79.899 Other long term (current) drug therapy

== ENCOUNTER → 2017-04-25 | Outpatient (CLI) | payer OTHER ==
[2017-04-25 12:05] LABS: BASO % 0.1 % (0.0-1.0); EOS # 0.3 10*3/uL (0.0-0.4); EOS % 4.1 % (1.0-4.0); HEMATOCRIT 34.8 % (37.0-47.0); HEMOGLOBIN 11.4 g/dl (12.0-16.0); LYMPH # 2.7 10*3/uL (1.3-4.4); LYMPH % 35.9 % (27.0-41.0); MEAN CELL VOLUME 89.5 fl (81.0-99.0); MEAN CORPUSCULAR HGB 29.3 pg (27.0-31.0); MEAN CORPUSCULAR HGB CONC 32.8 g/dl (33.0-37.0); MEAN PLATELET VOLUME 10.2 fl (9.6-12.3); MONO # 0.5 10*3/uL (0.1-1.0); MONO % 7.1 % (3.0-9.0); NEUT % 52.5 % (47.0-73.0); PLATELET COUNT AUTOMATED 214 10*3/uL (130-400); RED BLOOD COUNT 3.89 10*6/uL (4.10-5.10); RED CELL DISTRI WIDTH 13.6 % (0-14.5); WHITE BLOOD COUNT 7.6 10*3/uL (4.8-10.8)
== END | disposition home or self-care (01) ==
LOC: ORTHO 01:58
PROVIDERS: Orthopaedic Surgery
DX: S72.452D Displaced supracondylar fracture without intracondylar extension of lower end of left femur, subsequent encounter for closed fracture with routine healing (principal); M86.8X7 Other osteomyelitis, ankle and foot; M85.872 Other specified disorders of bone density and structure, left ankle and foot; M19.072 Primary osteoarthritis, left ankle and foot; X58.XXXD Exposure to other specified factors, subsequent encounter

== ENCOUNTER → 2017-05-13 | Outpatient (CLI) | payer OTHER | END | disposition home or self-care (01) | LOC: NM 10:00 | DX: M17.11 Unilateral primary osteoarthritis, right knee (principal); M86.8X8 Other osteomyelitis, other site ==

== ENCOUNTER → 2017-06-03 | Outpatient (CLI) | payer OTHER ==
[2017-06-04 06:13] LABS: RHEUMATOID ARTHRITIS FACTOR 10.1 IU/mL (0.0-13.9)
[2017-06-05 21:03] LABS: CCP ANTIBODIES IGG/IGA 3 units (0-19)
[2017-06-06 14:05] LABS: ANTI-DSDNA ANTIBODIES 096339 <1 IU/mL (0-9)
== END | disposition home or self-care (01) ==
LOC: LAB 15:45
PROVIDERS: Internal Medicine
DX: S89.90XD Unspecified injury of unspecified lower leg, subsequent encounter (principal); M15.0 Primary generalized (osteo)arthritis; I10 Essential (primary) hypertension; R22.40 Localized swelling, mass and lump, unspecified lower limb; L03.039 Cellulitis of unspecified toe; L03.90 Cellulitis, unspecified; R60.0 Localized edema; R05 Cough; E78.2 Mixed hyperlipidemia; F33.0 Major depressive disorder, recurrent, mild; E11.65 Type 2 diabetes mellitus with hyperglycemia; E11.42 Type 2 diabetes mellitus with diabetic polyneuropathy; E11.40 Type 2 diabetes mellitus with diabetic neuropathy, unspecified; X58.XXXD Exposure to other specified factors, subsequent encounter

== ENCOUNTER 2017-08-09 12:22 | Inpatient (IN) | payer OTHER ==
[~2017-08-09] VITALS: Ht 162.5 cm; Wt 82.7 kg
--- NOTE | ~2017-08-09 | PR ---
[place], [place] PROGRESS NOTE NAME: AYDEN VERDUZCO UNIT #: [id number] ROOM: 502 DOCTOR: SHELLY COELHO,SHAHEEN Pineda BIRTHDATE: [birth year] DOS: 08/13/2017 ADDENDUM I agree with the plans as described above. We will follow the patient up clinically and adjust accordingly. SHAHEEN BRAVO MD CM:PNTRANS [id number] [id number] SHAHEEN BRAVO MD 08/15/17 0735 interface
--- NOTE | ~2017-08-09 | PR ---
[place], [place] PROGRESS NOTE NAME: AYDEN VERDUZCO UNIT #: [id number] ROOM: 502 DOCTOR: GAMA ADAMS MD BIRTHDATE: [birth year] DOS: 08/12/2017 SUBJECTIVE: The patient is with cellulitis involving left lower extremity, improving with treatment. OBJECTIVE: GENERAL APPEARANCE: The patient is alert and oriented x 3, in no visible distress. VITAL SIGNS: Blood pressure 140/56, heart rate 77 beats per minute, breathing 16 times per minute, temperature 98.3 degrees Fahrenheit. HEENT AND NECK: Exam within normal limits. CARDIOVASCULAR SYSTEM: Heart rate is regular in rate and rhythm. S1 and S2 normally audible. LUNGS: Clear to auscultation. ABDOMEN: Soft, nontender. No obvious organomegaly. Bowel sounds are present. EXTREMITIES: Without significant cyanosis or edema. SKIN: Redness starting at the left hip going down into the left thigh has significantly improved. The patient still has significant redness and swelling in the left leg, which is also improving along with the pain. IMPRESSION: 1. Cellulitis involving left lower extremity is improving with treatment with Ancef and clindamycin. Infectious disease specialist is following her. The patient is not ready for discharge so far because her infection has not resolved, but it is improving. 2. Pain and inability to walk. The patient is working with physical therapy. The patient has pain in the left lower extremity, which is causing difficulty with walking. 3. Sepsis, leukocytosis, and fever all improved with antibiotics. 4. Type 2 diabetes mellitus. Blood sugars are being monitored and reasonably controlled. Blood sugar was 159. 5. Xdspi-il-gbkkiyn kidney disease. BUN and creatinine is at baseline now. Apparently acute kidney failure was related to sepsis and resolved with hydration with IV fluids. 6. Major depression, recurrent, mild, treated with Cymbalta. 7. Benign essential hypertension and blood pressure is being monitored and controlled. [place], [place] PROGRESS NOTE NAME: AYDEN VERDUZCO UNIT #: [id number] ROOM: [facility] DOCTOR: GAMA ADAMS MD BIRTHDATE: [birth year] GAMA ADAMS MD CM:FELECIA 1011 GAMA ADAMS MD 08/13/177 interface
--- NOTE | ~2017-08-09 | PR ---
[place], [place] PROGRESS NOTE NAME: AYDEN VERDUZCO UNIT #: [id number] ROOM: 502 DOCTOR: GAMA ADAMS MD BIRTHDATE: [birth year] DOS: 08/11/2017 SUBJECTIVE: Patient still with persistent redness and swelling and pain in her left lower extremity. Redness remains about the same except for it seems to be increasing in the leg and decreasing in the left hip area with present treatment. OBJECTIVE: VITAL SIGNS: Blood pressure 130/56, heart rate 85 beats per minute, breathing 20 times per minute. Patient afebrile. GENERAL APPEARANCE: The patient is alert and oriented x 3, in no visible distress. Moderate obesity. HEENT AND NECK: Exam within normal limits. CARDIOVASCULAR SYSTEM: Heart rate is regular in rate and rhythm. S1 and S2 normally audible. LUNGS: Clear to auscultation. ABDOMEN: Soft, nontender. No obvious organomegaly. Bowel sounds are present. EXTREMITIES: Redness and swelling extending from the left hip down to the foot and left lower extremity. IMPRESSION AND PLAN: 1. Patient with cellulitis involving left lower extremity where she also has hardware, is being treated with antibiotics and followed by Infectious Disease specialist. The redness and swelling in the left hip area improving, but the leg still is red and warm. 2. Type 2 diabetes mellitus. I am monitoring blood sugars and treating accordingly. 3. Sepsis, leukocytosis, fever are all improving. Blood cultures are negative so far and leukocytosis has resolved. 4. Pain and inability to walk. Patient working with Physical Therapy. 5. Acute over chronic kidney disease, treated with hydration, apparently secondary to severe infection and sepsis. 6. Benign essential hypertension. Blood pressure is being monitored and treated. 7. Major depression, recurrent, mild, being treated with Cymbalta. [place], [place] PROGRESS NOTE NAME: AYDEN VERDUZCO UNIT #: [id number] ROOM: 502 DOCTOR: GAMA ADAMS MD BIRTHDATE: [birth year] GAMA ADAMS MD CM:PNTRANS [id number] GAMA ADAMS MD 08/12/17 0313 interface
--- NOTE | ~2017-08-09 | DS ---
[place], [place] DISCHARGE SUMMARY NAME: AYDEN VERDUZCO [facility] #: [id number] UNIT #: [id number] ROOM: 502 DOCTOR: GAMA ADAMS MD BIRTHDATE: [birth year] DOS: DISCHARGE DIAGNOSES: 1. Cellulitis involving left lower extremity, resolving with treatment with antibiotics. 2. Inability to walk because of pain in the left lower extremity, resolved. 3. Sepsis, leukocytosis and fever resolved with treatment of antibiotics. 4. Type 2 diabetes mellitus with well controlled blood sugars. 5. Major depression, recurrent, mild. 6. Benign essential hypertension. 7. Type 2 diabetes mellitus. 8. Vitamin D deficiency. 9. Mixed hyperlipidemia. 10. Left femur repair and hardware in 2016 because of fracture. 11. History of bronchial asthma. 12. Benign essential hypertension. 13. Generalized anxiety disorder. 14. History of fibroid tumors. HOSPITAL COURSE: The patient with progressive redness, pain and swelling in the left lower extremity with some fever and chills and nausea starting on the , which was few days prior to patient coming to the Emergency Department that is 3 days later. There was pain in her left hip and ankle and she was unable to ambulate because of the pain. The patient was also checked for deep vein thrombosis and there were no complaints of shortness of breath. The patient was admitted and treated with IV antibiotics and her severe cellulitis has improved quite rapidly. The patient had a fever up to 100.5 degrees Fahrenheit and leukocytosis with white cell count of 15,900 with elevation of creatinine to 1.4, all secondary to sepsis. The patient also had a blood sugar of 259. All of this has improved with treatment of antibiotics and I discussed the situation with the Veena Shi with Infectious Diseases and plan is to send the patient home tomorrow to follow up with PCP within a couple of days. The patient is to go home on Keflex for 10 more days. 1. Inability to walk and bear weight on left lower extremity, with improvement in cellulitis, the pain has also improved. 2. Type 2 diabetes mellitus. Blood sugars are better controlled. 3. Acute renal failure with creatinine elevation to 1.4 secondary to sepsis that has improved with hydration and treatment of infection. 4. Benign essential hypertension with controlled blood pressures. 5. Major depression, recurrent, mild treated and controlled with Cymbalta. 6. Benign essential hypertension with controlled blood pressures. 7. Type 2 diabetes mellitus with reasonably controlled blood sugars, now blood cultures were negative. DISCHARGE MANAGEMENT: Losartan 25 mg a day, Cymbalta 60 mg a day, aspirin 81 mg a day, Tylenol p.r.n., simvastatin 10 mg a day, 70/30 insulin 30 units subq b.i.d., tizanidine 4 mg daily p.r.n., hydroxyzine 10 mg t.i.d. p.r.n. for anxiety, Keflex 500 mg 4 times a day for 10 more days. Follow up with PCP in 2 days after discharge. [place], [place] DISCHARGE SUMMARY NAME: AYDEN VERDUZCO UNIT #: [id number] ROOM: [facility] DOCTOR: GAMA ADAMS MD BIRTHDATE: [birth year] GAMA ADAMS MD CM:JEWELS [id number] GAMA ADAMS MD 08/14/17 2313 interface
--- NOTE | ~2017-08-09 | WRIGHTHP ---
[place], [place] PATIENT HISTORY AND PHYSICAL EXAM NAME: AYDEN VERDUZCO [facility] #: [id number] UNIT #: [id number] ROOM: 502 DOCTOR: GAMA ADAMS MD BIRTHDATE: [birth year] DOS: 08/09/2017 HISTORY OF PRESENT ILLNESS: The patient is a 71-year-old female with a past medical history of: 1. Type 2 diabetes mellitus, the patient is on insulin. 2. Major depression, recurrent. 3. Chronic constipation. 4. Vitamin D deficiency. 5. Mixed hyperlipidemia. 6. Left femur repair with hardware in 2016 because of a fracture. 7. History of bronchial asthma. 8. Benign essential hypertension. 9. Generalized anxiety disorder. 10. History of fibroid tumors. The patient presented to the Emergency Department with progressive increase in redness and pain in the left lower extremity with some fever and chills and nausea starting on the and progressively increasing. The patient came to the Emergency Department 3 days later. The patient especially has pain in her left hip and ankle. The patient was checked for deep vein thrombosis in the Emergency Department. No complaints of any shortness of breath, no chest pain, no dizziness or fainting episodes. No other GI or urinary symptoms. The patient says she has been unable to walk since the , but did not come to the Emergency Department. REVIEW OF SYSTEMS: LUNGS: No increasing shortness of breath or wheezing. CARDIOVASCULAR SYSTEM: No chest pains or palpitations. GASTROINTESTINAL: Some nausea, but no diarrhea or constipation. FAMILY HISTORY: Noncontributory. HOME MEDICATIONS: Cymbalta, losartan, aspirin, simvastatin, Colace. ALLERGIES: No known drug allergies. PHYSICAL EXAMINATION: GENERAL: Alert and oriented x 3, in no visible distress, moderately obese. MUSCULOSKELETAL: She has redness tracking down from her left hip all the way down on the outer side of the thigh up to the foot along with swelling, redness and the skin is warm. LABORATORY DATA: Sed rate elevated at 265. C-reactive protein elevated at 12.6, BUN and creatinine 28 and 1.2, improved from 31 and 1.4 with blood sugars elevated to 259. Bilirubin elevated to 1.4. Lactic acid level is normal. White cell count elevated to 16,000 on admission, hemoglobin 11.4. IMPRESSION: 1. The patient with sepsis with leukocytosis up to 15,900 total white cell count, fever with temperatures recorded up to 100.5 degrees Fahrenheit, chills, rigors, worsening of kidney function with creatinine elevation to 1.4 and [place], [place] PATIENT HISTORY AND PHYSICAL EXAM NAME: AYDEN VERDUZCO UNIT #: [id number] ROOM: [facility] DOCTOR: ANGIE COELHO,AGMA Rowley BIRTHDATE: [birth year] hyperglycemia with blood sugar of 259, have all started improving with treatment with IV antibiotics. The patient required Tylenol to control her fever. Blood cultures were drawn in the Emergency Department and patient is being treated with clindamycin and cefazolin and Infectious Disease specialists are following. 2. Cellulitis and possibility of infection of the hardware or even osteomyelitis involving the left lower extremity. Dr. Dubose, the orthopedic surgeon has been consulted to follow along with Infectious disease specialist. 3. Inability to walk and bear weight on left lower extremity because of pain. The patient is to work with physical therapy, Orthopedic Surgery and will be followed closely, monitored closely. 4. Type 2 diabetes mellitus. Blood sugars are to be monitored and treated. Blood sugars have improved to 167 from 250 at admission. 5. Acute renal failure with creatinine elevation to 1.4, apparently secondary to sepsis, is improving with hydration with normal saline. 6. Benign essential hypertension. Blood pressures are to be monitored, treated and controlled. 7. Major depression, recurrent, mild, treated with Cymbalta, which has been continued. One hour spent on patient care and management. GAMA ADAMS MD CM:HISPHYS:PATIENT HISTORY AND PHYSICAL EXAMINATION 1010 1141 GAMA ADAMS MD 08/10/17 1141 interface
--- NOTE | ~2017-08-09 | PR ---
[place], [place] PROGRESS NOTE [id number] UNIT #: [id number] ROOM: 502 DOCTOR: CHEMO TORRESNOVEMBER BIRTHDATE: [birth year] DOS: SUBJECTIVE: The patient is a 71-year-old female who is being followed for left lower extremity cellulitis that continues to improve. She is on Ancef and clindamycin. Her admitting blood cultures were negative. She has been afebrile. She is having some diarrhea. No abdominal cramps. No nausea or vomiting. No rash or itch. No cough or shortness of breath. She has been afebrile. Further review of systems is unremarkable. She does persist with left lower extremity edema. LABORATORY DATA: No labs done today. CURRENT MEDICATIONS: Include Benadryl, Cozaar, Cymbalta, aspirin, Tylenol, Zofran, Zocor, clindamycin, cefazolin, Colace, insulin, Zanaflex, Atarax and [place]. PHYSICAL EXAMINATION: VITAL SIGNS: Show temperature 98.5, pulse 80, respirations 16, BP 142/50. GENERAL: A 71-year-old female in no acute distress. HEAD, EYES, EARS, NOSE AND THROAT: Normocephalic, no thrush. LUNGS: Clear to auscultation bilaterally. Respirations even and unlabored. HEART: Regular rhythm. No murmur appreciated. ABDOMEN: Soft, nontender, nondistended. EXTREMITIES: Left lower extremity with foot drop and +2 to 3 edema with erythema and increased warmth of the lower leg and foot. SKIN: Warm, dry, free of rashes. ASSESSMENT: Left lower extremity cellulitis, which is improving with Ancef and clindamycin, now with diarrhea. PLAN: I discussed the case with Dr. Ramos, she would be okay to discharge on Keflex 500 mg p.o. q.i.d. for another 10 days. Tomorrow we will stop the clindamycin. Check a stool for C. diff. Continue the Ancef overnight. Consideration also needs to be given to stopping her Colace. NOVEMBER MELISSA MCLAIN [place], [place] PROGRESS NOTE NAME: AYDEN VERDUZCO UNIT #: [id number] ROOM: [facility] DOCTOR: CHEMO TORRES,NOVEMBER BIRTHDATE: [birth year] GAMA RAMOS MD CM:FELECIA 19 16 CHEMO TORRES 08/14/171815 interface
--- NOTE | ~2017-08-09 | PR ---
[place], [place] PROGRESS NOTE NAME: AYDEN VERDUZCO UNIT #: [id number] ROOM: 502 DOCTOR: GAMA ADAMS MD BIRTHDATE: [birth year] DOS: OBJECTIVE: GENERAL APPEARANCE: The patient is alert and oriented x 3, in no visible distress. VITAL SIGNS: Blood pressure 141/50, heart rate 74 beats per minute, breathing 18 times per minute, temperature 98.3 degrees Fahrenheit. HEENT AND NECK: Exam within normal limits. CARDIOVASCULAR SYSTEM: Heart rate is regular in rate and rhythm. S1 and S2 normally audible. LUNGS: Clear to auscultation. ABDOMEN: Soft, nontender. No obvious organomegaly. Bowel sounds are present. Obesity. EXTREMITIES: Improving redness and swelling in the left lower extremity. IMPRESSION: 1. The patient's cellulitis involving left lower extremity, continues to improve with Ancef and clindamycin. Infectious Disease specialists are following her. 2. Pain and inability to walk, improving with treatment. The pain was secondary to infection. 3. Sepsis, leukocytosis and fever have all resolved. 4. Type 2 diabetes mellitus with well controlled blood sugars. 5. Major depression, recurrent, mild, treated with Cymbalta. 6. Benign essential hypertension. Blood pressure is being treated, monitored and controlled. GAMA ADAMS MD CM:PNTRANS 1738 0353 GAMA ADAMS MD 08/14/17 0352 interface
--- NOTE | ~2017-08-09 | PR ---
[place], [place] PROGRESS NOTE NAME: AYDEN VERDUZCO UNIT #: [id number] ROOM: 502 DOCTOR: SHELLY COELHO,SHAHEEN Pineda BIRTHDATE: [birth year] DOS: 08/14/2017 ADDENDUM. I agree with the above plans as described above. We will follow the patient up clinically and adjust accordingly. SHAHEEN BRAVO MD CM:PNTRANS 0725 [id number] SHAHEEN BRAVO MD 08/15/17 1431 interface
--- NOTE | ~2017-08-09 | PR ---
[place], [place] PROGRESS NOTE NAME: AYDEN VERDUZCO [facility] #: [id number] UNIT #: [id number] ROOM: 502 DOCTOR: CHEMO TORRESNOVEMBER BIRTHDATE: [birth year] DOS: 08/13/2017 SUBJECTIVE: The patient is a 71-year-old female being followed for a left leg cellulitis. She is slowly improving on Ancef and clindamycin. Pain is slowly improving. Denies any problems with the antibiotics. She has been afebrile. No fevers, chills, nausea, vomiting or diarrhea. No rash or itch. No cough or shortness of breath. Left leg pain is improving. Continues with significant edema. She does have bilateral foot drop. Further review of systems is unremarkable. PHYSICAL EXAMINATION: VITAL SIGNS: Show temp 98.3, pulse 74, respirations 18 and BP 141/50. LABORATORY DATA: Blood cultures were negative. No other new labs today. CURRENT MEDICATIONS: Benadryl, Cozaar, Cymbalta, aspirin, Tylenol, Zofran, Zocor, Ancef, clindamycin, Colace, Zanaflex, Atarax and [place]. PHYSICAL EXAMINATION: GENERAL: A 71-year-old female, in no acute distress. THROAT: Normocephalic, no thrush. LUNGS: Clear to auscultation bilaterally. Respirations even and unlabored. HEART: Regular rhythm. No murmur appreciated. ABDOMEN: Soft, nontender. EXTREMITIES: +2 to 3 edema bilateral lower extremities, left greater than right with erythema of the left lower extremity appears to have significantly retreated from prior borders that were drawn on the patient's leg. He does still have some tenderness and increased warmth without erythema of the lower leg, but is improving. No erythema over prosthetic knee or hip. ASSESSMENT: Cellulitis of the left lower extremity. PLAN: She is improving slowly with Ancef and clindamycin. Continue IV antibiotics and anticipate switching over to orals probably Tuesday for discharge. Case discussed with Dr. Shaheen Bravo. NOVEMBER MELISSA MCLAIN [place], [place] PROGRESS NOTE NAME: AYDEN VERDUZCO UNIT #: [id number] ROOM: [facility] DOCTOR: CHEMO TORRES,NOVEMBER BIRTHDATE: [birth year] SHAHEEN BRAVO MD CM:PNTRANS 1716 [id number] NOVEMBER CHEMO TORRES 08/14/17 0113 interface
[2017-08-09 12:22] VITALS: BP 119/59
[2017-08-09 13:00] LABS: BASO % 0.1 % (0.0-1.0); EOS % 0.1 % (1.0-4.0); HEMATOCRIT 33.9 % (37.0-47.0); HEMOGLOBIN 11.4 g/dl (12.0-16.0); LYMPH # 4.4 10*3/uL (1.3-4.4); LYMPH % 27.4 % (27.0-41.0); MEAN CORPUSCULAR HGB 28.9 pg (27.0-31.0); MEAN CORPUSCULAR HGB CONC 33.6 g/dl (33.0-37.0); MEAN PLATELET VOLUME 10.2 fl (9.6-12.3); MONO # 1.1 10*3/uL (0.1-1.0); MONO % 6.9 % (3.0-9.0); NEUT # 10.4 10*3/uL (2.3-7.9); NEUT % 65.1 % (47.0-73.0); PLATELET COUNT AUTOMATED 173 10*3/uL (130-400); RED BLOOD COUNT 3.94 10*6/uL (4.10-5.10); RED CELL DISTRI WIDTH 13.1 % (0-14.5); WHITE BLOOD COUNT 15.9 10*3/uL (4.8-10.8)
[2017-08-09 13:14] LABS: ALBUMIN 3.3 gm/dl (3.1-4.5); CREATININE 1.42 mg/dL (0.55-1.02); POTASSIUM 4.1 mmol/L (3.5-5.1); TOTAL PROTEIN 6.8 gm/dL (6.4-8.2)
[2017-08-09 13:41] VITALS: BP 123/48
[2017-08-09] MEDS ORDERED: NORCO 5-325 TA1 EACH PO (14:52)
[2017-08-09] MEDS ORDERED: NOVOLOG MI100 UNIT/1 SC (14:54)
[2017-08-09 15:40] VITALS: BP 123/48
[2017-08-09 16:00] VITALS: BP 134/50
[2017-08-09 20:00] VITALS: BP 114/53
[2017-08-10] VITALS: BP 128/46
[2017-08-10 07:06] LABS: BASO % 0.1 % (0.0-1.0); EOS % 0.3 % (1.0-4.0); HEMOGLOBIN 9.7 g/dl (12.0-16.0); LYMPH # 2.9 10*3/uL (1.3-4.4); LYMPH % 27.3 % (27.0-41.0); MEAN CELL VOLUME 87.1 fl (81.0-99.0); MEAN CORPUSCULAR HGB 29.1 pg (27.0-31.0); MEAN CORPUSCULAR HGB CONC 33.4 g/dl (33.0-37.0); MEAN PLATELET VOLUME 10.5 fl (9.6-12.3); MONO # 0.9 10*3/uL (0.1-1.0); MONO % 8.9 % (3.0-9.0); NEUT # 6.7 10*3/uL (2.3-7.9); NEUT % 63.2 % (47.0-73.0); PLATELET COUNT AUTOMATED 153 10*3/uL (130-400); RED BLOOD COUNT 3.33 10*6/uL (4.10-5.10); RED CELL DISTRI WIDTH 13.1 % (0-14.5); WHITE BLOOD COUNT 10.5 10*3/uL (4.8-10.8)
[2017-08-10 07:29] LABS: CREATININE 1.19 mg/dL (0.55-1.02); POTASSIUM 4.1 mmol/L (3.5-5.1)
[2017-08-10 08:00] VITALS: BP 133/52
[2017-08-10 12:00] VITALS: BP 142/59
[2017-08-10 16:00] VITALS: BP 113/44
[2017-08-10 20:00] VITALS: BP 133/51
[2017-08-11] VITALS: BP 126/50
[2017-08-11 07:32] LABS: BASO % 0.1 % (0.0-1.0); EOS # 0.2 10*3/uL (0.0-0.4); EOS % 2.8 % (1.0-4.0); HEMATOCRIT 27.2 % (37.0-47.0); LYMPH # 2.1 10*3/uL (1.3-4.4); LYMPH % 28.9 % (27.0-41.0); MEAN CELL VOLUME 86.6 fl (81.0-99.0); MEAN CORPUSCULAR HGB 28.7 pg (27.0-31.0); MEAN CORPUSCULAR HGB CONC 33.1 g/dl (33.0-37.0); MEAN PLATELET VOLUME 10.8 fl (9.6-12.3); MONO # 0.8 10*3/uL (0.1-1.0); MONO % 11.3 % (3.0-9.0); NEUT % 56.5 % (47.0-73.0); PLATELET COUNT AUTOMATED 159 10*3/uL (130-400); RED BLOOD COUNT 3.14 10*6/uL (4.10-5.10); RED CELL DISTRI WIDTH 13.2 % (0-14.5); WHITE BLOOD COUNT 7.1 10*3/uL (4.8-10.8)
[2017-08-11 08:33] LABS: BUN 21 mg/dl (7-24); CHLORIDE 106 mmol/L (98-107); CREATININE 0.97 mg/dL (0.55-1.02); POTASSIUM 3.4 mmol/L (3.5-5.1); SODIUM 140 mmol/L (136-145)
[2017-08-11 12:00] VITALS: BP 130/56
[2017-08-11 16:00] VITALS: BP 128/48
[2017-08-11 20:00] VITALS: BP 121/54
[2017-08-12] VITALS: BP 100/47
[2017-08-12 06:27] LABS: BASO % 0.2 % (0.0-1.0); EOS # 0.2 10*3/uL (0.0-0.4); EOS % 3.3 % (1.0-4.0); HEMATOCRIT 27.1 % (37.0-47.0); HEMOGLOBIN 9.3 g/dl (12.0-16.0); LYMPH % 31.3 % (27.0-41.0); MEAN CELL VOLUME 87.7 fl (81.0-99.0); MEAN CORPUSCULAR HGB 30.1 pg (27.0-31.0); MEAN CORPUSCULAR HGB CONC 34.3 g/dl (33.0-37.0); MEAN PLATELET VOLUME 10.1 fl (9.6-12.3); MONO # 0.5 10*3/uL (0.1-1.0); MONO % 8.2 % (3.0-9.0); NEUT # 3.6 10*3/uL (2.3-7.9); NEUT % 56.4 % (47.0-73.0); PLATELET COUNT AUTOMATED 175 10*3/uL (130-400); RED BLOOD COUNT 3.09 10*6/uL (4.10-5.10); RED CELL DISTRI WIDTH 13.2 % (0-14.5); WHITE BLOOD COUNT 6.4 10*3/uL (4.8-10.8)
[2017-08-12 06:39] LABS: BUN 24 mg/dl (7-24); CHLORIDE 105 mmol/L (98-107); CREATININE 0.94 mg/dL (0.55-1.02); POTASSIUM 4.3 mmol/L (3.5-5.1); SODIUM 140 mmol/L (136-145)
[2017-08-12 08:00] VITALS: BP 140/56
[2017-08-12 12:00] VITALS: BP 122/50
[2017-08-12 16:00] VITALS: BP 141/60
[2017-08-12 20:00] VITALS: BP 141/52
[2017-08-13] VITALS: BP 126/59
[2017-08-13 08:00] VITALS: BP 138/53
[2017-08-13 12:00] VITALS: BP 134/66; BP 148/52
[2017-08-13 16:00] VITALS: BP 141/50
[2017-08-13 20:00] VITALS: BP 141/53
[2017-08-14] VITALS: BP 131/57
[2017-08-14 08:00] VITALS: BP 138/57
[2017-08-14 12:00] VITALS: BP 157/68
[2017-08-14 16:00] VITALS: BP 142/50
[2017-08-14] MEDS ORDERED: CEPHALEXIN500 M1 PO (17:39)
[2017-08-14 20:00] VITALS: BP 150/67
[2017-08-15] VITALS: BP 137/48
[2017-08-15 08:00] VITALS: BP 157/67
[2017-08-15 12:00] VITALS: BP 144/55
== END 2017-08-15 16:06 | disposition home or self-care (01) | DRG 871 ==
LOC: ED 12:22 → 5E 14:08 → EDHOLD 14:08 → 5E 14:29
PROVIDERS: Emergency Medicine; Internal Medicine
DX: A41.9 Sepsis, unspecified organism (principal); N17.0 Acute kidney failure with tubular necrosis; L89.311 Pressure ulcer of right buttock, stage 1; L03.116 Cellulitis of left lower limb; E11.22 Type 2 diabetes mellitus with diabetic chronic kidney disease; L89.890 Pressure ulcer of other site, unstageable; E11.65 Type 2 diabetes mellitus with hyperglycemia; E87.1 Hypo-osmolality and hyponatremia; F33.0 Major depressive disorder, recurrent, mild; E55.9 Vitamin D deficiency, unspecified; F41.1 Generalized anxiety disorder; E78.2 Mixed hyperlipidemia; J45.909 Unspecified asthma, uncomplicated; K59.09 Other constipation; N18.9 Chronic kidney disease, unspecified; I12.9 Hypertensive chronic kidney disease with stage 1 through stage 4 chronic kidney disease, or unspecified chronic kidney disease; Z90.49 Acquired absence of other specified parts of digestive tract; Z79.4 Long term (current) use of insulin; Z79.899 Other long term (current) drug therapy; Z91.81 History of falling; Z82.49 Family history of ischemic heart disease and other diseases of the circulatory system; Z80.9 Family history of malignant neoplasm, unspecified; Z85.028 Personal history of other malignant neoplasm of stomach

== ENCOUNTER 2017-12-24 14:02 | Inpatient (IN) | payer OTHER ==
[~2017-12-24] VITALS: Ht 163 cm; Wt 83.0 kg
--- NOTE | ~2017-12-24 | CON ---
[place], [place] REPORT OF CONSULTATION NAME: AYDEN VERDUZCO UNIT #: [id number] ROOM: 422 DOCTOR: JASIEL CHAUHAN MD BIRTHDATE: [birth year] DOS: HISTORY OF PRESENT ILLNESS: A 72-year-old patient who has presented with a chief complaint of exhaustion, I did not feel well and she had to come to the hospital for further evaluation; therefore, a panel of blood work was done and was found to have lactic acid of 1.2. CBC: White blood cell 9.8, H and H of 7 and 22, further dropped after hydration was noticed to thrive the H and H to ____ and 18. Microcytic indices; however, platelet 164. The patient had a comprehensive metabolic panel: Glucose 172, BUN and creatinine 35 and 1.02. Electrolytes were balanced. Liver function tests; bilirubin 4.9, GOT of 47 and GPT of 25, alkaline phosphatase at 127. Troponin was normal. Total iron binding was 187. Iron level was 127. Ferritin 373, which is elevated. Fecal occult was positive. CBC differential was repeatedly reassessed in vivo transfusion of 2 units of packed cell was given in ICU and was monitored. There were no adverse events, I noticed during this transfusion. PAST MEDICAL HISTORY: Associated with obesity, depression, diabetes mellitus, hypertension, hyperlipidemia and anxiety. PAST SURGICAL HISTORY: Broken left femur, status post hardware placement as well as minor small surgeries, right hand. SOCIAL HISTORY: Nonsmoker, nonalcohol consumer she says. ALLERGIES: To no known medications. MEDICATIONS: Medication list has been reviewed, devoid of antiplatelets and anticoagulants. FAMILY HISTORY: Noncontributory. REVIEW OF SYSTEMS: HEENT: Denies double vision, blurred vision. RESPIRATORY: Denies shortness of breath. CARDIOVASCULAR: Denies chest pain. DIGESTIVE SYSTEM: No hematemesis, no hematochezia. PHYSICAL EXAMINATION: GENERAL: Obese patient. VITAL SIGNS: Stable, comfortable status post transfusion. HEENT: Within normal limits. NECK: Supple, no thyromegaly, no cervical lymphadenopathy. CHEST: Symmetric anatomy, equal expansion. No wheeze, no rhonchi. HEART: Normal sinus rhythm. No gallop, no murmur. ABDOMEN: Obese, soft. No hepato-organomegaly. Bowel sounds present. No pulsatile mass. EXTREMITIES: No cyanosis, no pedal edema. NEUROLOGIC: Alert and oriented to time, place and person. IMPRESSION: Profound anemia with hemoglobin of 5 and hematocrit of 18, [place], [place] REPORT OF CONSULTATION NAME: AYDEN VERDUZCO UNIT #: [id number] ROOM: 422 DOCTOR: JASIEL CHAUHAN MD BIRTHDATE: [birth year] microcytic indices, mostly. OTHER ADJUNCTIVE DIAGNOSIS: Guaiac positivity, status post 2 units in vivo transfusion. Other adjunctive diagnoses as outlined in paragraph of past medical and surgical history. PLAN AND DISCUSSION: We are going to get B12 and folate level. We are going to get a LDH level on her. We are going to repeat H and H in the morning. We are going to prep her for colonic prep protocol and we are going to organize an EGD and colonoscopy tomorrow afternoon. She can have breakfast in the morning of clear liquids and after that n.p.o. and EGD and colonoscopy is scheduled. She is not going to receive any anticoagulation and prophylactic from this point. JASIEL CHAUHAN MD CM:CONSTR:REPORT OF CONSULTATION 45 12/26/17 0157 interface
--- NOTE | ~2017-12-24 | PR ---
[place], [place] PROGRESS NOTE [facility]: [id number] UN[facility] #: [id number] ROOM: 422 DOCTOR: JERRI ODELL MD BIRTHDATE: [birth year] DOS: 12/27/2017 SUBJECTIVE: The patient is doing better. REVIEW OF SYSTEMS: HEENT: No trouble swallowing. No double vision. No loss of vision. No pain. ENT AND RESPIRATORY: No wheeze. No change in voice. No cough. No shortness of breath. No coughing up blood. No epistaxis. CARDIOLOGIC: No chest pain. No dizziness. No irregular heartbeat. No leg edema. No palpitations. No shortness of breath. HEMATOLOGIC AND LYMPH: No past transfusion. No fatigue. No loss of appetite. No easy bruising. GASTROENEROLOGIC: No change in bowel habits. No vomiting blood. No abdominal cramping. No nausea. No vomiting. No diarrhea. No constipation. No blood in stool. FEMALE REPRODUCTIVE: No dyspareunia. No pelvic pain. MUSCULOSKELETAL: No back pain. No muscle pain or weakness. No tingling/numbness. UROLOGIC: No pain with urination. No difficulty urinating. No frequent urination. NEUROLOGIC: No burning pain in feet. No trouble with coordination. No loss of consciousness. No headache. No tingling/numbness. No memory loss. PHYSICAL EXAMINATION: GENERAL: Pleasant woman in no apparent distress. VITAL SIGNS: Stable, afebrile. HEENT: Normocephalic, atraumatic NECK AND THYROID: Supple. No JVD, thyromegaly, or lymphadenopathy. HEART: Normal S1, S2. Regular rate and rhythm. LUNGS: Clear to auscultation and percussion. ABDOMEN: Soft. Nontender, nondistended. Bowel sounds present. EXTREMITIES: Normal ROM. No clubbing. No edema. LABORATORY DATA: Blood work from 12/27/2017, white count of 7.2, hemoglobin 7.5, hematocrit 23.0, platelet count 152. Haptoglobin less than 10, EGFR is more than 60, iron of 127. TIBC 182, saturation 19. ASSESSMENT: 1. Hemolytic anemia, status post multiple units of packed red blood cells. 2. Status post gastrointestinal workup including colonoscopy, which was negative and upper endoscopy showed gastritis. PLAN: I had detailed discussion with the patient, we will start steroids and follow the count closely. Discussed with the patient in detail and agreed to the plan. [place], [place] PROGRESS NOTE NAME: AYDEN VERDUZCO UNIT #: [id number] ROOM: [facility] DOCTOR: JOSE R COELHO,JERRI BIRTHDATE: [birth year] JERRI ODELL MD CM:PNMIRACLE 1213 0020 JERRI ODELL MD 12/28/17 0019 interface
--- NOTE | ~2017-12-24 | CON ---
[place], [place] REPORT OF CONSULTATION NAME: [facility]CO [id number] UNIT #: [id number] ROOM: 422 DOCTOR: JERRI ODELL MD BIRTHDATE: [birth year] DOS: 12/26/2017 HISTORY OF PRESENT ILLNESS: A pleasant 72-year-old [place] woman presented with dizziness and generalized weakness for the past 2-3 days. In the ER, found to be acutely anemic and subsequently admitted in consult for further evaluation and management. PAST MEDICAL HISTORY: Significant for type 2 diabetes mellitus, major depression, benign essential hypertension, vitamin D deficiency, mixed hyperlipidemia, left femur repair hardware placement in 2016 for fracture, bronchial asthma, generalized anxiety disorder. FAMILY HISTORY: Noncontributory. MEDICATIONS: Cymbalta, losartan, simvastatin, Colace, tizanidine and insulin. ALLERGIES: No known allergies. SOCIAL HISTORY: No smoking, drinking, or drug abuse. REVIEW OF SYSTEMS: CONSTITUTIONAL: No chills. No fatigue. No fever. No loss of appetite. No night sweats. No weakness. No weight loss. HEENT: No trouble swallowing. No loss of smell. No loss of hearing. No double vision. No pain. No discharge. ENT AND RESPIRATORY: No wheeze. No sore throat. No change in voice. No hearing loss. No nose bleed. No cough. No trouble breathing through nose. No shortness of breath. No coughing up blood. No epistaxis. CARDIOVASCULAR: No chest pain. No dizziness. No irregular heartbeat. No leg edema. No pain in legs while walking. No palpitations. No shortness of breath. DERMATOLOGIC: No acne. No hives. No laceration. No mole. No rash. ENDOCRINE: No cold intolerance. No diabetes. No fatigue. No hot flashes. No polydipsia. No polyuria. No urinating frequently. No weight loss. HEMATOLOGIC AND LYMPH: No fatigue. No easy bruising. GASTROENTEROLOGIC: No change in bowel habits. No indigestion. No frequent bloating. No vomiting blood. No abdominal cramping. No nausea. No heartburn. No vomiting. No abdominal pain. No dysphagia. No diarrhea. No constipation. No blood in stool. FEMALE REPRODUCTIVE: No vaginal itching. No difficulty urinating. No heavy periods. No dyspareunia. No sexually active. No dysmenorrhea. No pelvic pain. No breast pain. No nipple discharge. No abnormal vaginal discharge. No hot flashes. MUSCULOSKELETAL: No back pain. No muscle pain or weakness. No neck pain. No tingling/numbness. No swelling/bruising. No osteoporosis treatment. OPHTHALMOLOGIC: No double vision. No diminished vision. No loss of vision. UROLOGIC: No dysuria. No frequent nighttime urination. No irregular periods. No pain with urination. No difficulty urinating. No blood in urine. No frequent urination. No urinary incontinence. NEUROLOGIC: No loss of sensation in specific body area. No vertigo. No [place], [place] REPORT OF CONSULTATION NAME: AYDEN VERDUZCO UNIT #: [id number] ROOM: [facility] DOCTOR: JERRI ODELL MD BIRTHDATE: [birth year] burning pain in feet. No trouble with balance. No trouble with coordination. No loss of consciousness. No loss of feeling/power. No confusion. No headache. No tingling/numbness. PSYCHOLOGIC: No tinnitus. No headaches. No shortness of breath. No weight decrease. No nausea. No vomiting. No abdominal discomfort. No constipation. No diarrhea. No depression. No anxiety. PHYSICAL EXAMINATION: GENERAL: General appearance: Pleasant woman, no apparent distress. VITAL SIGNS: Stable, afebrile. HEENT: Oral mucosa appears intact. The external ears are normal in appearance. Nares are patent without lesions, exudates, erythema, or inflammation. Tongue is symmetrical. Uvula is midline. Icteric conjunctiva. NECK AND THYROID: Neck supple without palpable masses. Trachea is midline. No thyromegaly. No carotid bruit or JVD. BREASTS: Normal. Nipples unremarkable. No drainage. No lumps felt on either side. HEART: Normal S1, S2, without significant murmur, rub, or gallop. LUNGS: Clear to auscultation and percussion with good air entry bilaterally. The patient is breathing easily without the use of accessory muscles. Diaphragmatic excursions are intact. ABDOMEN: No costovertebral angle tenderness. Soft. No organomegaly or masses. Nontender. No hernias present. Liver and spleen are not palpable. LYMPHATIC: No adenopathy noted in the cervical, supraclavicular, axillary, or inguinal regions. NEUROLOGIC: Nonfocal. Oriented to person, place, and time. MENTAL STATUS: Appropriate for mood and affect. PERIPHERAL PULSES: No varicosities. Femoral and pedal pulses are palpable. EXTREMITIES: Without cyanosis, clubbing, or edema. No gross anomalies. LABORATORY DATA: White count 6.8, hemoglobin 7.1, hematocrit 21.5, and platelet count 152,000. ASSESSMENT: 1. Severe anemia. 2. Adult failure to thrive. 3. Diabetes mellitus. 4. Hyperbilirubinemia. PLAN: Discussed in detail with the patient getting ____ hemolytic workup. Review peripheral smears as well as a blood work, iron studies, etc., depending on the further intervention. I had a detailed discussed with the patient about it, seemed to understand. Ample time was given to the patient to ask me questions. We will follow. Thanks for consulting and letting me participate in the care of this interesting patient. [place], [place] REPORT OF CONSULTATION NAME: DAXAYDEN Saenz UNIT #: [id number] ROOM: 422 DOCTOR: JERRI ODELL MD BIRTHDATE: [birth year] JERRI ODELL MD CM:CONSTR:REPORT OF CONSULTATION 1211 12/28/17 0026 interface
--- NOTE | ~2017-12-24 | DS ---
[place], [place] DISCHARGE SUMMARY NAME: [id number] UNIT #: [id number] ROOM: 422 DOCTOR: GAMA ADAMS MD BIRTHDATE: [birth year] DOS: 12/30/2017 DISCHARGE DIAGNOSES: 1. The patient with persistent hemolytic anemia from uncertain etiology. 2. Type 2 diabetes mellitus. 3. Chronic constipation. 4. Adult failure to thrive. 5. History of bronchial asthma. 6. Generalized anxiety disorder. 7. Left femur repair and hardware placement in 2016 for fracture. 8. Mixed hyperlipidemia. 9. Vitamin D deficiency. 10. Benign essential hypertension. 11. Major depression, recurrent. HOSPITAL COURSE: The patient presented with dizziness, generalized weakness for 2-3 days prior to admission. She was found to be acutely anemic and suspected to have a urinary infection. The patient looked very pale and was suspected to be septic because of tachycardia and temperature of 99.8 degrees Fahrenheit. She maintained a DNR/comfort care code status. The patient was admitted and taken for a GI workup because she had stool Hemoccult positive. EGD and colonoscopy only showed gastritis, no active bleeding. The patient continued to drop hemoglobin. Hemolytic anemia with low haptoglobin levels and the patient continues to require 2 units of packed cells a day and her hemoglobin has again dropped to 6.3 today. The patient was seen and evaluated by Dr. Pacheco, the supervisory geographer and started on prednisone 80 mg a day. The patient still continues to drop hemoglobin, despite of being on prednisone. The patient again requires a blood transfusion. Dr. Pacheco is not sure of the cause of hemolysis. The patient did take an antibiotic that made her to have some nausea, vomiting within the last few weeks, so I was wondering if the patient had drug-induced hemolytic anemia. In my opinion, the patient needs to be transferred to a tertiary care center for further diagnosis and management. I have made a call to [facility] and see if she can be transferred there because she has [place] Medicaid along with Medicare insurance. LABORATORY DATA: 1. Hemoglobin again dropped to 6.3. The patient's hemoglobin was 7 at the time of admission and since then, she has received 6 units of packed cells and the patient now requires 2 more units of packed cells. 2. Type 2 diabetes mellitus with reasonably controlled blood sugars. 3. Benign essential hypertension with controlled blood pressures. 4. History of bronchial asthma without any increased shortness of breath. 5. Generalized anxiety disorder. The patient is feeling reasonably well. 6. Major depression, recurrent, mild. The patient treated with Cymbalta, is asymptomatic. 7. Mixed hyperlipidemia, treated with simvastatin. DISCHARGE MANAGEMENT: IV Protonix 40 mg b.i.d., sliding scale of regular [place], [place] DISCHARGE SUMMARY NAME: AYDEN VERDUZCO UNIT #: [id number] ROOM: [facility] DOCTOR: GAMA ADAMS MD BIRTHDATE: [birth year] insulin, cetirizine 10 mg a day, prednisone 40 mg b.i.d., losartan 25 mg daily, Cymbalta 60 mg a day, simvastatin 10 mg a day, Colace 100 mg b.i.d., NPH insulin 25 units b.i.d. subQ, tizanidine 4 mg daily, hydroxyzine 10 mg t.i.d. p.r.n. for anxiety, IV ceftriaxone 1 gram daily, Xanax 0.5 mg t.i.d. p.r.n. for anxiety, Vicodin t.i.d. p.r.n. for pain. GAMA ADAMS MD CM:JEWELS 31 02 GAMA ADAMS MD 12/30/17 2001 interface
--- NOTE | ~2017-12-24 | PR ---
[place], [place] PROGRESS NOTE NAME: AYDEN VERDUZCO UNIT #: [id number] ROOM: 422 DOCTOR: GAMA ADAMS MD BIRTHDATE: [birth year] DOS: 12/27/2017 SUBJECTIVE: Patient feeling somewhat better. OBJECTIVE: VITAL SIGNS: Blood pressure 143/53, heart rate 98 beats per minute, breathing 20 times per minute, temperature 98 degrees Fahrenheit. GENERAL APPEARANCE: The patient is alert and oriented x 3, in no visible distress. HEENT AND NECK: Exam within normal limits. CARDIOVASCULAR SYSTEM: Heart rate is regular in rate and rhythm. S1 and S2 normally audible. LUNGS: Clear to auscultation. ABDOMEN: Soft, nontender. No obvious organomegaly. Bowel sounds are present. EXTREMITIES: Without significant cyanosis or edema. IMPRESSION: 1. Patient with acute blood loss and hemolytic anemia with a hemoglobin of 7.5, haptoglobin was also normal. Hemoccult stool positive, but no active bleeding found on GI endoscopy. Case was discussed with Dr. Pacheco, the para professional earlier on. So far it is not obvious why patient became anemic quickly, but her hemoglobin has stabilized and hemoglobin is at 7.5 after receiving 4 units of packed cells. 2. Dizziness, lightheaded and generalized weakness, apparently related to acute anemia, has improved with blood transfusions. 3. Chronic constipation, being treated and followed. 4. Major depression, recurrent, moderate, treated with Cymbalta, controlled. 5. Adult failure to thrive. Patient working with physical therapy. 6. Type 2 diabetes mellitus. Blood sugars being monitored and are reasonably controlled. GAMA ADAMS MD CM:PNTRANS 99 GAMA ADAMS MD 12/28/177 interface
--- NOTE | ~2017-12-24 | PR ---
[place], [place] PROGRESS NOTE NAME: AYDEN VERDUZCO UNIT #: [id number] ROOM: 422 DOCTOR: GAMA ADAMS MD BIRTHDATE: [birth year] DOS: 12/28/2017 SUBJECTIVE: Patient continues to drop hemoglobin, and is being transfused with blood. She is otherwise asymptomatic. OBJECTIVE: VITAL SIGNS: Blood pressure 126/80, heart rate 88 beats per minute, breathing 18 times per minute, temperature 98.6 degrees Fahrenheit. GENERAL APPEARANCE: The patient is alert and oriented x 3, in no visible distress. HEENT AND NECK: Exam within normal limits. CARDIOVASCULAR SYSTEM: Heart rate is regular in rate and rhythm. S1 and S2 normally audible. LUNGS: Clear to auscultation. ABDOMEN: Soft, nontender. No obvious organomegaly. Bowel sounds are present. EXTREMITIES: Without significant cyanosis or edema. IMPRESSION: 1. Patient's hemoglobin dropped to 5.7 again and she was transfused with 2 units of packed cells. 2. Patient with acquired hemolytic anemia from uncertain etiology, being treated with prednisone by Dr. Pacheco. Patient continues to drop hemoglobin. 3. Patient is status post gastrointestinal workup with EGD and colonoscopy without any signs of acute bleeding. 4. Chronic constipation, being treated. 5. Adult failure to thrive. Patient on physical therapy. 6. Type 2 diabetes mellitus. Blood sugars are reasonably controlled and being monitored. GAMA ADAMS MD CM:PNTRANS [id number] 0154 GAMA ADAMS MD 12/29/17 0152 interface
--- NOTE | ~2017-12-24 | WRIGHTHP ---
[place], [place] PATIENT HISTORY AND PHYSICAL EXAM NAME: AYDEN VERDUZCO [facility] #: [id number] UNIT #: [id number] ROOM: [facility] DOCTOR: GAMA ADAMS MD BIRTHDATE: [birth year] DOS: 12/24/2017 HISTORY OF PRESENT ILLNESS: The patient is a 72-year-old female with a past medical history of: 1. Adult failure to thrive. 2. Type 2 diabetes mellitus. 3. Major depression, recurrent. 4. Benign essential hypertension. 5. Type 2 diabetes mellitus. 6. Vitamin D deficiency. 7. Mixed hyperlipidemia. 8. Left femur repair and hardware placement in 2016 for fracture. 9. Bronchial asthma. 10. Generalized anxiety disorder. The patient with adult failure to thrive presented with dizziness and generalized weakness for 2 to 3 days. The patient was found to be acutely anemic and have a urine infection on testing in the Emergency Department. The patient looks very pale after admission and was suspected to be septic because of tachycardia, fever of 99.8 degrees Fahrenheit. After admission, the patient says her code status is DNR comfort care and not full code as described by the Emergency Department. The patient initially was admitted to the ICU, but now is being transferred to a non-monitored bed. There were some complains of shortness of breath. No fainting episodes. No other GI or urinary symptoms, but the patient did have some shaking chills. REVIEW OF SYSTEMS: LUNGS: Some shortness of breath. GASTROINTESTINAL: No nausea, vomiting, diarrhea, constipation or dark or black colored stools. CARDIOVASCULAR: No chest pain or palpitations. FAMILY HISTORY: Noncontributory. HOME MEDICATIONS: Losartan, Cymbalta, simvastatin, Colace, tizanidine, insulin. ALLERGIES: No known drug allergies. PHYSICAL EXAMINATION: GENERAL: Alert, oriented x 3, in no visible distress, looking somewhat pale, generalized weakness. HEENT AND NECK: Extraocular movements are intact. Sclerae are anicteric. Oral mucosa is moist and clean. No obvious facial weakness. Neck is supple without any lymphadenopathy. No thyromegaly. No JVD. No carotid arterial bruits. LUNGS: Clear to auscultation. No wheezing. No rhonchi. CARDIOVASCULAR SYSTEM: Heart rate is regular in rate and rhythm. S1 and S2 normally audible. No significant murmur or any other abnormal cardiac sounds. ABDOMEN: Soft, nontender. No obvious organomegaly. Bowel sounds are present. No obvious herniation. EXTREMITIES: Without significant cyanosis or edema. Warm to touch. [place], [place] PATIENT HISTORY AND PHYSICAL EXAM NAME: AYDEN VERDUZCO UNIT #: [id number] ROOM: [facility] DOCTOR: GAMA ADAMS MD BIRTHDATE: [birth year] CENTRAL NERVOUS SYSTEM: Alert and oriented x 3. Cranial nerves II-XII are intact. Speech is normal. The patient is able to move all extremities. Normal muscle strength. Deep tendon reflexes are equal on both sides. Plantars were downgoing. IMPRESSION: 1. Adult failure to thrive. The patient is to be kept on physical therapy and we will take bedsore precautions and fall precautions. 2. Acute anemia, hemoglobin dropped from 9.3 in August to 7 now and the patient's hemoglobin has been dropping. Hemoccult stools in the ER were negative. I will repeat stool for Hemoccult blood and consult Dr. Parrish, the early childhood education worker and let him decide about blood transfusion. Stool for Hemoccult blood has been ordered again. 3. Dizziness, lightheadedness, generalized weakness and fatigue. Apparently from progressive anemia. 4. Elevation of bilirubin from uncertain etiology. Dr. Parrish to evaluate. 5. Benign essential hypertension, treated and controlled. 6. Mixed hyperlipidemia, treated with simvastatin. 7. Major depression, recurrent, moderate, treated with Cymbalta and controlled. 8. Chronic constipation, treated with Colace. 9. Anemia, studies have been ordered. GAMA ADAMS MD CM:HISPHYS:PATIENT HISTORY AND PHYSICAL EXAMINATION 43 17 GAMA ADAMS MD 12/24/171816 interface
--- NOTE | ~2017-12-24 | PR ---
[place], [place] PROGRESS NOTE NAME: AYDEN VERDUZCO UNIT #: [id number] ROOM: 422 DOCTOR: JERRI ODELL MD BIRTHDATE: [birth year] DOS: 12/26/2017 SUBJECTIVE: The patient was seen because of severe anemia. Workup has been ordered. The patient for GI workup also. Depending upon that, further intervention. JERRI ODELL MD CM:PNTRANS 1423 0343 JERRI ODELL MD 12/27/17 0342 interface
--- NOTE | ~2017-12-24 | PR ---
[place], [place] PROGRESS NOTE NAME: AYDEN VERDUZCO UNIT #: [id number] ROOM: 422 DOCTOR: GAMA ADAMS MD BIRTHDATE: [birth year] DOS: 12/25/2017 SUBJECTIVE: The patient with precipitous drop in hemoglobin to 5.8 from hemoglobin of 9.3 that she had in August, requiring blood transfusion. Hemoccult stools are positive. The patient is feeling better with blood transfusion. OBJECTIVE: VITAL SIGNS: Blood pressure 122/42, heart rate 101 beats per minute, breathing 16 times per minute, temperature 99 degrees Fahrenheit. GENERAL APPEARANCE: The patient is alert and oriented x 3, in no visible distress, except for obesity. HEENT AND NECK: Exam within normal limits. CARDIOVASCULAR SYSTEM: Heart rate is regular in rate and rhythm. S1 and S2 normally audible. LUNGS: Clear to auscultation. ABDOMEN: Soft, nontender. No obvious organomegaly. Bowel sounds are present. EXTREMITIES: Without significant cyanosis or edema. IMPRESSION: 1. Precipitous drop in hemoglobin related to acute gastrointestinal bleed, iFOBT of stool was positive. Hemoglobin has dropped from 9.3 in August to 5.8 today. A consult has been obtained with Dr. Pacheco, the steam turbine assembler and also Dr. Parrish, the pediatric social worker has already been consulted. The patient is starting to feel better with a blood transfusion. 2. Type 2 diabetes mellitus. Blood sugars are being monitored and treated. The patient is on no concentrated sweet diet. 3. Adult failure to thrive. The patient is to work with Physical Therapy. 4. Major depression, recurrent, moderate, treated with Cymbalta and controlled. 5. Chronic constipation, being treated with Colace. 6. Dizziness, lightheadedness and generalized weakness and fatigue, apparently from progressive anemia, improved with blood transfusion. GAMA ADAMS MD CM:PNTRANS 23 08 GAMA ADAMS MD 12/25/172108 interface
--- NOTE | ~2017-12-24 | O ---
[place], [place] OPERATIVE NOTE NAME: AYDEN VERDUZCO UNIT #: [id number] ROOM: 422 DOCTOR: TIEN COELHO,JASIEL BIRTHDATE: [birth year] DOS: 12/26/2017 INDICATIONS: The patient has presented with multiple medical issues among which has been anemia and I have been asked for assessment ____ the source of GI blood loss. The patient with anemia, guaiac positivity, status post 2 units transfusion. PROCEDURE: Today's procedure part of investigation is panendoscopy and colonoscopy. PREMEDICATION: Propofol. SCOPE: Olympus folding gastroscope Q10 video. REPORT: After putting the patient in left lateral position and application of lubricant to the scope, the scope was introduced. Thereafter, under direct visualization, advanced through the length of esophagus without difficulty. Gastric pouch was entered. Gastritis seen. Duodenal bulb, second and third part within normal limits. Antral biopsy obtained. The patient extubated, tolerated the procedure well. IMPRESSION: Gastritis. No obvious source of blood loss was identified. PLAN AND DISCUSSION: We are going to proceed with colonoscopy. HISTORY OF PRESENT ILLNESS: The patient has a guaiac positivity, undergoing investigation. PROCEDURE: Today's procedure part of investigation is colonoscopy. PREMEDICATION: Versed and propofol. SCOPE: Olympus folding colonoscope 10L video. REPORT: After putting the patient in left lateral position and application of lubricant to the scope, the scope was introduced. Thereafter, under direct visualization, advanced through the length of colon without difficulty. Base of the cecum explored, appendiceal orifice identified. Ileocecal valve was defined. Scope was gradually withdrawn from ascending, transverse, descending colon. The patient extubated, tolerated procedure well. IMPRESSION: Stool retention in the semi-liquid stool throughout the length of colon. However, no acute source of pathology of concern. No active bleeding. PLAN AND DISCUSSION: We are going to proceed with feeding. The patient ____ on her H and H, B12, and folate has been normal. Labs reviewed, records reviewed. Latest H and H post-transfusion has been 7 and 21, we are going to transfuse 2 more units. [place], [place] OPERATIVE NOTE NAME: AYDEN VERDUZCO UNIT #: [id number] ROOM: 422 DOCTOR: JASIEL CHAUHAN MD BIRTHDATE: [birth year] JASIEL CHAUHAN MD CM:OPRECORD:OPERATIVE NOTE [id number] JASIEL CHAUHAN MD 12/26/172051 interface
--- NOTE | ~2017-12-24 | PR ---
[place], [place] PROGRESS NOTE [facility]: [id number] UNIT #: [id number] ROOM: 422 DOCTOR: GAMA ADAMS MD BIRTHDATE: [birth year] DOS: 12/26/2017 SUBJECTIVE: The patient is still anemic with hemoglobin of 7.1 and receiving more blood transfusions. OBJECTIVE: VITAL SIGNS: Blood pressure 138/52, heart rate 96 beats per minute, breathing 18 times per minute, temperature 99.1 degrees Fahrenheit. GENERAL APPEARANCE: The patient is alert and oriented x 3, in no visible distress, except for generalized weakness and obesity. HEENT AND NECK: Exam within normal limits. CARDIOVASCULAR SYSTEM: Heart rate is regular in rate and rhythm. S1 and S2 normally audible. LUNGS: Clear to auscultation. ABDOMEN: Soft, nontender. No obvious organomegaly. Bowel sounds are present. EXTREMITIES: Without significant cyanosis or edema. IMPRESSION: 1. The patient with Hemoccult positive stool. The patient's colonoscopy did not show any significant signs of bleeding, just an esophagogastroduodenoscopy showed gastritis. 2. Acute anemia with precipitous drop in hemoglobin. I am considering hemolysis and opinion from Dr. Pacheco is still pending. He has ordered initial testing and the patient is being given 2 more units of packed cells to treat her anemia. I will recheck her bilirubin and liver enzymes tomorrow. 3. Dizziness, lightheadedness and generalized weakness, improved with blood transfusion. 4. Chronic constipation, being treated and followed. 5. Major depression, recurrent, moderate, treated with Cymbalta. 6. Adult failure to thrive. The patient worked with Physical Therapy. 7. Type 2 diabetes mellitus. Blood sugar is being monitored and treated. GAMA ADAMS MD CM:PNTRANS 26 [phone] GAMA ADAMS MD 12/26/171849 interface
--- NOTE | ~2017-12-24 | PR ---
[place], [place] PROGRESS NOTE [facility]: [id number] UNIT #: [id number] ROOM: 422 DOCTOR: GAMA ADAMS MD BIRTHDATE: [birth year] DOS: 12/29/2017 SUBJECTIVE: The patient is feeling better. OBJECTIVE: VITAL SIGNS: Blood pressure 130/48, heart rate 95 beats per minute, breathing 18 times per minute, temperature 98 degrees Fahrenheit. GENERAL APPEARANCE: The patient is alert and oriented x 3, in no visible distress. HEENT AND NECK: Exam within normal limits. CARDIOVASCULAR SYSTEM: Heart rate is regular in rate and rhythm. S1 and S2 normally audible. LUNGS: Clear to auscultation. ABDOMEN: Soft, nontender. No obvious organomegaly. Bowel sounds are present. EXTREMITIES: Without significant cyanosis or edema. IMPRESSION: The patient with hemolytic anemia being treated with prednisone. Hemoglobin has dropped to 6.3 and she is getting 2 units of blood again. The patient is being followed by Dr. Pacheco, the heel stainer. The patient is status post gastrointestinal workup with EGD and colonoscopy because she had heme positive stools. Workup was negative except for simple gastritis. Chronic constipation, treated and controlled. Adult failure to thrive. The patient receiving physical therapy. Type 2 diabetes mellitus. Blood sugars being monitored and treated. GAMA ADAMS MD CM:PNTRANS [phone] GAMA ADAMS MD 12/30/17 0146 interface
--- NOTE | ~2017-12-24 | PR ---
[place], [place] PROGRESS NOTE [id number] UNIT #: [id number] ROOM: 422 DOCTOR: ABRAHAN ROMANO MD BIRTHDATE: [birth year] DOS: 12/31/2017 SUBJECTIVE: The patient is resting comfortably, does not have any complaints today. OBJECTIVE: GENERAL: The patient is awake and alert and oriented. VITAL SIGNS: Graphic trend shows a pressure of 130/57, pulse of 88, respirations 18, temperature 98.2. LUNGS: Diminished breath sounds. HEART: Regular. ABDOMEN: Obese. EXTREMITIES: With some minimal foot drop noted. ASSESSMENT AND PLAN: 1. Possible hemolytic anemia of unknown etiology. The patient is awaiting transfer to [facility] who will not receive the patient until the hemoglobin is 7.5 or above. The patient is receiving transfusion this morning. 2. Type 2 diabetes mellitus, insulin-dependent. Blood sugars controlled. 3. The patient has history of pancytopenia, but did not undergo the bone marrow as was suggested last year. ABRAHAN ROMANO MD CM:PNTRANS [id number] ABRAHAN ROMANO MD 12/31/17 1209 interface
[~2017-12-24 14:02] MED LIST changes: +NORCO 5-325 TA1 EACH PO; +NOVOLOG MI100 UNIT/1 SC
[2017-12-24 14:05] VITALS: BP 115/31
[2017-12-24 14:43] LABS: BILIRUBIN 1+ (NEGATIVE); BLOOD 2+ (NEGATIVE); CLARITY SL CLOUDY (CLEAR); COLOR YELLOW (YELLOW); GLUCOSE NEGATIVE (NEGATIVE); KETONE TRACE (NEGATIVE); LEUKO ESTERASE 3+ (NEGATIVE); NITRITE NEGATIVE (NEGATIVE); PH 5.5 (5.0-9.0)
[2017-12-24 14:44] LABS: BASO % 0.1 % (0.0-1.0); EOS # 0.1 10*3/uL (0.0-0.4); EOS % 1.1 % (1.0-4.0); HEMATOCRIT 22.3 % (37.0-47.0); LYMPH # 4.3 10*3/uL (1.3-4.4); LYMPH % 44.1 % (27.0-41.0); MEAN CELL VOLUME 98.7 fl (81.0-99.0); MEAN CORPUSCULAR HGB CONC 31.4 g/dl (33.0-37.0); MEAN PLATELET VOLUME 9.8 fl (9.6-12.3); MONO # 1.1 10*3/uL (0.1-1.0); MONO % 10.7 % (3.0-9.0); NEUT # 4.3 10*3/uL (2.3-7.9); NEUT % 43.5 % (47.0-73.0); PLATELET COUNT AUTOMATED 176 10*3/uL (130-400); RED BLOOD COUNT 2.26 10*6/uL (4.10-5.10); RED CELL DISTRI WIDTH 15.6 % (0-14.5); WHITE BLOOD COUNT 9.8 10*3/uL (4.8-10.8)
[2017-12-24 14:50] LABS: BACTERIA 3+; EPITHELIAL CELLS 21-30
[2017-12-24 14:51] LABS: WBC 41-50 wbc/hpf (0-5)
[2017-12-24 14:52] LABS: ACT PARTIAL THROMBO TIME 21.8 SECONDS (20.8-31.5)
[2017-12-24 14:52] LABS: MUCOUS TRACE; RBC 31-40 rbc/hpf (0-2)
[2017-12-24 15:01] LABS: ALBUMIN 3.4 gm/dl (3.1-4.5); ALKALINE PHOSPHATASE 127 U/L (45-117); BUN 35 mg/dl (7-24); CHLORIDE 108 mmol/L (98-107); CPK 45 U/L (26-192); CREATININE 1.02 mg/dL (0.55-1.02); LIPASE 79 U/L (73-393); POTASSIUM 4.9 mmol/L (3.5-5.1); SGOT/AST 47 IU/L (3-35); SGPT/ALT 25 U/L (12-78); SODIUM 142 mmol/L (136-145); TOTAL PROTEIN 6.6 gm/dL (6.4-8.2)
[2017-12-24 15:03] LABS: CKMB < 0.5 ng/ml (0.5-3.6); TROPONIN I < 0.015 ng/ml (<0.045)
[2017-12-24 15:29] VITALS: BP 104/50
[2017-12-24 16:29] VITALS: BP 116/42
[2017-12-24 16:55] VITALS: BP 149/58
[2017-12-24] MEDS ORDERED: ASPIRIN325 M2 PO (16:56)
[2017-12-24] MEDS ORDERED: ZOFRAN8 M1 PO (17:06)
[2017-12-24] MEDS ORDERED: HYDROXYZINE10 MG PO (17:11)
[2017-12-24] MEDS ORDERED: PROMETHAZINE25 M1 PO (17:13)
[2017-12-24 18:05] LABS: IRON 127 ug/dL (50-170); TOTAL IRON BINDING CAPACITY 182 ug/dl (250-450)
[2017-12-24 20:00] VITALS: BP 139/49
[2017-12-25] VITALS (13 sets, daily range): BP systolic 117–149; BP diastolic 32–76
[2017-12-25 05:45] LABS: BUN 35 mg/dl (7-24); CHLORIDE 109 mmol/L (98-107); SODIUM 141 mmol/L (136-145)
[2017-12-25 07:05] LABS: HEMATOCRIT 18.8 % (37.0-47.0); MEAN CORPUSCULAR HGB 31.5 pg (27.0-31.0); MEAN CORPUSCULAR HGB CONC 30.9 g/dl (33.0-37.0); MEAN PLATELET VOLUME 10.4 fl (9.6-12.3); PLATELET COUNT AUTOMATED 164 10*3/uL (130-400); RED BLOOD COUNT 1.84 10*6/uL (4.10-5.10); RED CELL DISTRI WIDTH 15.7 % (0-14.5)
[2017-12-25 07:09] LABS: MEAN CELL VOLUME 102.2 fl (81.0-99.0)
[2017-12-25 07:28] LABS: PLATELET SUFFICIENCY NORMAL (NORMAL); POLYCHROMASIA SLIGHT; TOTAL CELLS COUNTED 100 #CELLS
[2017-12-25 07:31] LABS: HEMOGLOBIN 5.8 g/dl (12.0-16.0)
[2017-12-25 17:58] LABS: BILIRUBIN NEGATIVE (NEGATIVE); BLOOD 3+ (NEGATIVE); CLARITY SL CLOUDY (CLEAR); COLOR YELLOW (YELLOW); GLUCOSE NEGATIVE (NEGATIVE); KETONE NEGATIVE (NEGATIVE); LEUKO ESTERASE NEGATIVE (NEGATIVE); NITRITE NEGATIVE (NEGATIVE); PH 5.5 (5.0-9.0)
[2017-12-25 18:08] LABS: BACTERIA 1+
[2017-12-25 22:00] LABS: HEMATOCRIT 23.1 % (37.0-47.0); HEMOGLOBIN 7.5 g/dl (12.0-16.0); RETICULOCYTE % 8.05 % (0.50-2.50)
[2017-12-26] VITALS (19 sets, daily range): BP systolic 94–167; BP diastolic 34–83
[2017-12-26 06:52] LABS: BASO % 0.2 % (0.0-1.0); EOS # 0.2 10*3/uL (0.0-0.4); EOS % 2.6 % (1.0-4.0); HEMATOCRIT 21.5 % (37.0-47.0); HEMOGLOBIN 6.8 g/dl (12.0-16.0); LYMPH # 3.1 10*3/uL (1.3-4.4); LYMPH % 46.2 % (27.0-41.0); MEAN CORPUSCULAR HGB 31.2 pg (27.0-31.0); MEAN CORPUSCULAR HGB CONC 31.6 g/dl (33.0-37.0); MEAN PLATELET VOLUME 10.6 fl (9.6-12.3); MONO # 0.6 10*3/uL (0.1-1.0); MONO % 9.2 % (3.0-9.0); NEUT # 2.7 10*3/uL (2.3-7.9); NUCLEATED RED BLOOD CELL 0.3 % (0.0-0.0); PLATELET COUNT AUTOMATED 153 10*3/uL (130-400); RED BLOOD COUNT 2.18 10*6/uL (4.10-5.10); RED CELL DISTRI WIDTH 15.8 % (0-14.5); WHITE BLOOD COUNT 6.7 10*3/uL (4.8-10.8)
[2017-12-26 06:54] LABS: MEAN CELL VOLUME 98.6 fl (81.0-99.0)
[2017-12-26 07:28] LABS: CHLORIDE 107 mmol/L (98-107); POTASSIUM 3.6 mmol/L (3.5-5.1); SODIUM 140 mmol/L (136-145)
[2017-12-26 07:49] LABS: BUN 30 mg/dl (7-24); CREATININE 0.77 mg/dL (0.55-1.02)
[2017-12-26 07:52] LABS: LDH 951 U/L (84-246)
[2017-12-26 10:29] LABS: BASO % 0.1 % (0.0-1.0); EOS # 0.1 10*3/uL (0.0-0.4); EOS % 1.6 % (1.0-4.0); HEMATOCRIT 21.5 % (37.0-47.0); HEMOGLOBIN 7.1 g/dl (12.0-16.0); LYMPH # 2.9 10*3/uL (1.3-4.4); LYMPH % 43.4 % (27.0-41.0); MEAN CELL VOLUME 98.2 fl (81.0-99.0); MEAN CORPUSCULAR HGB 32.4 pg (27.0-31.0); MEAN PLATELET VOLUME 10.5 fl (9.6-12.3); MONO # 0.9 10*3/uL (0.1-1.0); MONO % 12.7 % (3.0-9.0); NEUT # 2.8 10*3/uL (2.3-7.9); NEUT % 41.5 % (47.0-73.0); NUCLEATED RED BLOOD CELL 0.3 % (0.0-0.0); PLATELET COUNT AUTOMATED 152 10*3/uL (130-400); RED BLOOD COUNT 2.19 10*6/uL (4.10-5.10); RED CELL DISTRI WIDTH 15.9 % (0-14.5); WHITE BLOOD COUNT 6.8 10*3/uL (4.8-10.8)
[2017-12-27 00:18] VITALS: BP 146/56
[2017-12-27 06:43] LABS: BASO % 0.1 % (0.0-1.0); EOS # 0.1 10*3/uL (0.0-0.4); HEMATOCRIT 23.1 % (37.0-47.0); HEMOGLOBIN 7.5 g/dl (12.0-16.0); LYMPH # 3.6 10*3/uL (1.3-4.4); LYMPH % 50.8 % (27.0-41.0); MEAN CELL VOLUME 98.3 fl (81.0-99.0); MEAN CORPUSCULAR HGB 31.9 pg (27.0-31.0); MEAN CORPUSCULAR HGB CONC 32.5 g/dl (33.0-37.0); MEAN PLATELET VOLUME 10.7 fl (9.6-12.3); MONO # 0.7 10*3/uL (0.1-1.0); MONO % 9.3 % (3.0-9.0); NEUT # 2.6 10*3/uL (2.3-7.9); NUCLEATED RED BLOOD CELL 0.3 % (0.0-0.0); PLATELET COUNT AUTOMATED 151 10*3/uL (130-400); RED BLOOD COUNT 2.35 10*6/uL (4.10-5.10); RED CELL DISTRI WIDTH 17.2 % (0-14.5); WHITE BLOOD COUNT 7.1 10*3/uL (4.8-10.8)
[2017-12-27 07:03] LABS: BUN 31 mg/dl (7-24); CHLORIDE 109 mmol/L (98-107); CREATININE 0.75 mg/dL (0.55-1.02); POTASSIUM 3.8 mmol/L (3.5-5.1); SODIUM 143 mmol/L (136-145)
[2017-12-27 08:00] VITALS: BP 147/55
[2017-12-27 09:22] LABS: BASO % 0.1 % (0.0-1.0); EOS # 0.2 10*3/uL (0.0-0.4); EOS % 2.4 % (1.0-4.0); HEMOGLOBIN 7.5 g/dl (12.0-16.0); LYMPH # 3.6 10*3/uL (1.3-4.4); LYMPH % 49.2 % (27.0-41.0); MEAN CELL VOLUME 97.9 fl (81.0-99.0); MEAN CORPUSCULAR HGB 31.9 pg (27.0-31.0); MEAN CORPUSCULAR HGB CONC 32.6 g/dl (33.0-37.0); MEAN PLATELET VOLUME 10.1 fl (9.6-12.3); MONO # 0.8 10*3/uL (0.1-1.0); MONO % 10.7 % (3.0-9.0); NEUT # 2.7 10*3/uL (2.3-7.9); NEUT % 36.6 % (47.0-73.0); NUCLEATED RED BLOOD CELL 0.4 % (0.0-0.0); PLATELET COUNT AUTOMATED 152 10*3/uL (130-400); RED BLOOD COUNT 2.35 10*6/uL (4.10-5.10); RED CELL DISTRI WIDTH 17.4 % (0-14.5); WHITE BLOOD COUNT 7.2 10*3/uL (4.8-10.8)
[2017-12-27 12:00] VITALS: BP 128/51
[2017-12-27 16:00] VITALS: BP 143/53
[2017-12-27 20:00] VITALS: BP 118/49
[2017-12-28 00:20] VITALS: BP 143/55
[2017-12-28 06:29] LABS: HEMATOCRIT 18.7 % (37.0-47.0); HEMOGLOBIN 6.1 g/dl (12.0-16.0)
[2017-12-28 08:00] VITALS: BP 123/80
[2017-12-28] MEDS ORDERED: ALL DAY ALLERGY10 MG PO (09:33)
[2017-12-28 10:09] LABS: MEAN CORPUSCULAR HGB 32.4 pg (27.0-31.0); MEAN CORPUSCULAR HGB CONC 31.7 g/dl (33.0-37.0); MEAN PLATELET VOLUME 10.8 fl (9.6-12.3); NUCLEATED RED BLOOD CELL 0.3 % (0.0-0.0); RED BLOOD COUNT 1.76 10*6/uL (4.10-5.10); RED CELL DISTRI WIDTH 20.1 % (0-14.5); WHITE BLOOD COUNT 13.1 10*3/uL (4.8-10.8)
[2017-12-28 10:11] LABS: MEAN CELL VOLUME 102.3 fl (81.0-99.0); PLATELET COUNT AUTOMATED 208 10*3/uL (130-400)
[2017-12-28 10:16] LABS: HEMOGLOBIN 5.7 g/dl (12.0-16.0)
[2017-12-28 10:49] LABS: ATYPICAL LYMPHS 1 % (0-0); TOTAL CELLS COUNTED 100 #CELLS
[2017-12-28 10:50] LABS: PLATELET SUFFICIENCY NORMAL (NORMAL)
[2017-12-28 10:51] LABS: POLYCHROMASIA SLIGHT
[2017-12-28 11:36] LABS: ALBUMIN 3.5 gm/dl (3.1-4.5); ALKALINE PHOSPHATASE 94 U/L (45-117); BUN 40 mg/dl (7-24); CHLORIDE 108 mmol/L (98-107); CREATININE 0.99 mg/dL (0.55-1.02); POTASSIUM 4.2 mmol/L (3.5-5.1); SGOT/AST 113 IU/L (3-35); SGPT/ALT 24 U/L (12-78); SODIUM 141 mmol/L (136-145); TOTAL PROTEIN 6.8 gm/dL (6.4-8.2)
[2017-12-28 16:00] VITALS: BP 126/80
[2017-12-29] VITALS (19 sets, daily range): BP systolic 112–146; BP diastolic 36–58
[2017-12-29 10:53] LABS: HEMATOCRIT 19.2 % (37.0-47.0); HEMOGLOBIN 6.3 g/dl (12.0-16.0)
[2017-12-29] MEDS ORDERED: ASPIR 8181 MG PO (20:03)
[2017-12-30] VITALS: BP 124/45
[2017-12-30 07:09] LABS: HEMOGLOBIN 6.3 g/dl (12.0-16.0)
[2017-12-30 08:00] VITALS: BP 147/57
[2017-12-30 12:16] VITALS: BP 145/49
[2017-12-30 20:00] VITALS: BP 140/60
[2017-12-31] VITALS: BP 131/55
[2017-12-31 06:24] LABS: HEMATOCRIT 15.9 % (37.0-47.0); HEMOGLOBIN 5.2 g/dl (12.0-16.0)
[2017-12-31 06:43] VITALS: BP 130/47
[2017-12-31 07:00] VITALS: BP 136/40
[2017-12-31 08:00] VITALS: BP 146/43
[2017-12-31 12:00] VITALS: BP 150/62
[2017-12-31 16:00] VITALS: BP 148/48
== END 2017-12-31 16:35 | disposition short-term general hospital (02) | DRG 872 ==
LOC: ED 14:02 → ICCU 16:02 → EDHOLD 16:02 → 4E 16:02 → ICCU 16:12 → 4E 12-25 05:59
PROVIDERS: Internal Medicine; Internal Medicine Gastroenterology; Internal Medicine Hematology & Oncology; Nurse Practitioner Family
PROC: 30233N1 Transfusion of Nonautologous Red Blood Cells into Peripheral Vein, Percutaneous Approach (ICD-10-PCS; principal; 2017-12-25)
PROC: 0DB68ZX Excision of Stomach, Via Natural or Artificial Opening Endoscopic, Diagnostic (ICD-10-PCS; 2017-12-26)
PROC: 0DJD8ZZ Inspection of Lower Intestinal Tract, Via Natural or Artificial Opening Endoscopic (ICD-10-PCS; 2017-12-26)
DX: A41.9 Sepsis, unspecified organism (principal); D59.9 Acquired hemolytic anemia, unspecified; E11.9 Type 2 diabetes mellitus without complications; D62 Acute posthemorrhagic anemia; N39.0 Urinary tract infection, site not specified; F33.1 Major depressive disorder, recurrent, moderate; I10 Essential (primary) hypertension; E55.9 Vitamin D deficiency, unspecified; E78.2 Mixed hyperlipidemia; F41.1 Generalized anxiety disorder; Z66 Do not resuscitate; Z51.5 Encounter for palliative care; R62.7 Adult failure to thrive; K59.09 Other constipation; E80.6 Other disorders of bilirubin metabolism; J45.909 Unspecified asthma, uncomplicated; Z79.4 Long term (current) use of insulin; Z79.899 Other long term (current) drug therapy; Z91.011 Allergy to milk products; Z90.49 Acquired absence of other specified parts of digestive tract; Z95.820 Peripheral vascular angioplasty status with implants and grafts; Z80.9 Family history of malignant neoplasm, unspecified; Z82.49 Family history of ischemic heart disease and other diseases of the circulatory system; K29.00 Acute gastritis without bleeding

== ENCOUNTER → 2018-01-13 | Outpatient (CLI) | payer OTHER ==
[~2018-01-13] MED LIST changes: +ALL DAY ALLERGY10 MG PO; +ASPIR 8181 MG PO; +ASPIRIN325 M2 PO; +HYDROXYZINE10 MG PO; +PROMETHAZINE25 M1 PO; +ZOFRAN8 M1 PO
[2018-01-13 16:27] LABS: HEMATOCRIT 20.5 % (37.0-47.0); HEMOGLOBIN 6.2 g/dl (12.0-16.0); MEAN CELL VOLUME 126.5 fl (81.0-99.0); MEAN CORPUSCULAR HGB 38.3 pg (27.0-31.0); MEAN CORPUSCULAR HGB CONC 30.2 g/dl (33.0-37.0); MEAN PLATELET VOLUME 11.2 fl (9.6-12.3); NUCLEATED RED BLOOD CELL 0.1 % (0.0-0.0); PLATELET COUNT AUTOMATED 228 10*3/uL (130-400); RED BLOOD COUNT 1.62 10*6/uL (4.10-5.10)
[2018-01-13 17:01] LABS: PLATELET SUFFICIENCY NORMAL (NORMAL); POLYCHROMASIA SLIGHT; TOTAL CELLS COUNTED 100 #CELLS
[2018-01-13 17:03] LABS: MICROCYTOSIS SLIGHT
== END | disposition home or self-care (01) ==
LOC: LAB 15:21
PROVIDERS: Internal Medicine
DX: D58.9 Hereditary hemolytic anemia, unspecified (principal)

== ENCOUNTER → 2018-01-17 | Outpatient (CLI) | payer OTHER ==
[2018-01-17 15:09] LABS: HEMATOCRIT 21.5 % (37.0-47.0); HEMOGLOBIN 6.6 g/dl (12.0-16.0); MEAN CELL VOLUME 125.7 fl (81.0-99.0); MEAN CORPUSCULAR HGB 38.6 pg (27.0-31.0); MEAN CORPUSCULAR HGB CONC 30.7 g/dl (33.0-37.0); MEAN PLATELET VOLUME 10.8 fl (9.6-12.3); PLATELET COUNT AUTOMATED 156 10*3/uL (130-400); RED BLOOD COUNT 1.71 10*6/uL (4.10-5.10); RED CELL DISTRI WIDTH 16.3 % (0-14.5); WHITE BLOOD COUNT 32.3 10*3/uL (4.8-10.8)
[2018-01-17 16:10] LABS: POLYCHROMASIA SLIGHT; TOTAL CELLS COUNTED 100 #CELLS
[2018-01-17 16:11] LABS: PLATELET SUFFICIENCY NORMAL (NORMAL)
== END | disposition home or self-care (01) ==
LOC: LAB 14:40
PROVIDERS: Internal Medicine Hematology & Oncology
DX: D64.9 Anemia, unspecified (principal); Z91.011 Allergy to milk products

== ENCOUNTER → 2018-01-18 | Outpatient (CLI) | payer OTHER ==
[2018-01-18] VITALS (7 sets, daily range): BP systolic 112–134; BP diastolic 37–47
== END | disposition home or self-care (01) ==
LOC: TRNFUSION 01:17
DX: C91.11 Chronic lymphocytic leukemia of B-cell type in remission (principal); D64.9 Anemia, unspecified

== ENCOUNTER → 2018-01-30 | Outpatient (CLI) | payer OTHER ==
[2018-01-30 13:12] LABS: HEMATOCRIT 22.8 % (37.0-47.0); MEAN CELL VOLUME 121.9 fl (81.0-99.0); MEAN CORPUSCULAR HGB 37.4 pg (27.0-31.0); MEAN CORPUSCULAR HGB CONC 30.7 g/dl (33.0-37.0); MEAN PLATELET VOLUME 10.7 fl (9.6-12.3); NUCLEATED RED BLOOD CELL 0.3 % (0.0-0.0); PLATELET COUNT AUTOMATED 206 10*3/uL (130-400); RED BLOOD COUNT 1.87 10*6/uL (4.10-5.10); RED CELL DISTRI WIDTH 15.5 % (0-14.5); WHITE BLOOD COUNT 7.4 10*3/uL (4.8-10.8)
[2018-01-30 13:44] LABS: PLATELET SUFFICIENCY NORMAL (NORMAL); POLYCHROMASIA SLIGHT; TOTAL CELLS COUNTED 100 #CELLS
== END | disposition home or self-care (01) ==
LOC: LAB 12:48
PROVIDERS: Internal Medicine Hematology & Oncology
DX: D64.9 Anemia, unspecified (principal)

== ENCOUNTER → 2018-01-31 | Outpatient (CLI) | payer OTHER ==
[~2018-01-31] MED LIST changes: +COZAAR50 M1 PO; -LOSARTAN POTASS25 M1 PO
== END | disposition home or self-care (01) ==
LOC: LAB 09:18
DX: C91.11 Chronic lymphocytic leukemia of B-cell type in remission (principal); D64.9 Anemia, unspecified

== ENCOUNTER → 2018-02-01 | Outpatient (CLI) | payer OTHER | END | disposition home or self-care (01) | LOC: LAB 09:19 | DX: C91.11 Chronic lymphocytic leukemia of B-cell type in remission (principal); C64.9 Malignant neoplasm of unspecified kidney, except renal pelvis ==

== ENCOUNTER → 2018-02-09 | Outpatient (CLI) | payer OTHER ==
[2018-02-07 16:59] LABS: HEMOGLOBIN 10.6 g/dl (12.0-16.0); MEAN CORPUSCULAR HGB CONC 31.2 g/dl (33.0-37.0); MEAN PLATELET VOLUME 10.4 fl (9.6-12.3); PLATELET COUNT AUTOMATED 245 10*3/uL (130-400); RED BLOOD COUNT 3.12 10*6/uL (4.10-5.10); WHITE BLOOD COUNT 8.4 10*3/uL (4.8-10.8)
[2018-02-07 17:27] LABS: BASOPHILS 2 % (0-1); PLATELET SUFFICIENCY NORMAL (NORMAL); TOTAL CELLS COUNTED 100 #CELLS
== END | disposition home or self-care (01) ==
LOC: TRNFUSION 04:10
PROVIDERS: Internal Medicine Hematology & Oncology
DX: D64.9 Anemia, unspecified (principal); C91.11 Chronic lymphocytic leukemia of B-cell type in remission

== ENCOUNTER → 2018-10-03 | Outpatient (CLI) | payer OTHER ==
[~2018-10-03] MED LIST changes: +CEFUROXIME AXE250 MG PO; +COZAAR100 MG PO; +IMBRUVICA420 MG PO; +K-TAB10 MEQ PO; +LOPRESSOR25 MG PO; +LOSARTAN POTASS50 M1 PO; +PROTONIX40 MG PO; +ZYRTEC10 M3 PO
== END | disposition home or self-care (01) ==
LOC: CT 09-27 16:00
DX: Z51.11 Encounter for antineoplastic chemotherapy (principal); R16.1 Splenomegaly, not elsewhere classified; E11.10 Type 2 diabetes mellitus with ketoacidosis without coma; C91.00 Acute lymphoblastic leukemia not having achieved remission; D59.1 Other autoimmune hemolytic anemias

== ENCOUNTER 2018-12-04 12:06 | Inpatient (IN) | payer OTHER ==
[~2018-12-04] VITALS: Ht 162.6 cm; Wt 79.4 kg
--- NOTE | ~2018-12-04 | WRIGHTHP ---
[place], [place] PATIENT HISTORY AND PHYSICAL EXAM NAME: AYDEN VERDUZCO [facility] #: [id number] UNIT #: [id number] ROOM: 402 DOCTOR: ABRAHAN ROMANO MD BIRTHDATE: [birth year] DOS: 12/04/2018 HISTORY OF PRESENT ILLNESS: The patient is 73 years old. She is very well known to us, came into the office on complain of increasing shortness of breath. She denied having any chest pains, palpitations, does not have any fever or chills, does not have any cough or sputum production. The patient is mostly wheelchair bound and does not ambulate at all. PAST MEDICAL HISTORY: Significant for: 1. Aplastic anemia with pancytopenia. 2. Type 2 diabetes mellitus. 3. Benign hypertension. 4. Chronic back pain with peripheral neuropathy with bilateral foot drop. 5. Recent pericardial effusion, status post pericardial window. MEDICATIONS: Medications that she is currently on are vitamin D 2000 units daily, potassium 10 mEq daily, Zyrtec 10 daily, duloxetine 60 daily, Colace 100 b.i.d., [place] 5 b.i.d., hydroxyzine 10 b.i.d., Imbruvica 420 daily, losartan 100 daily, metoprolol 12.5 b.i.d., multivitamin one tablet daily, Protonix 40 daily, simvastatin 10 daily, Zanaflex 4 mg daily, insulin 70/30 25 units twice a day. SOCIAL HISTORY: Nonsmoker, does not use any alcohol. Lives at home alone. PHYSICAL EXAMINATION: GENERAL: She is awake and alert and oriented. VITAL SIGNS: Blood pressure is 110/45, pulse of 100, respirations 14, afebrile. LUNGS: Diminished breath sounds. No wheezes, rales, rhonchi heard. HEART: Regular. ABDOMEN: Obese, soft, nontender. EXTREMITIES: Without any edema. Foot drop noticed bilaterally. LABORATORY DATA: The last one is from showed hypokalemia, potassium is 3.3 and rest of the labs were all within normal limits. Chest x-ray showed moderate to large pleural effusion on the left side. ASSESSMENT AND PLAN: 1. The patient who presents with increasing shortness of breath with a large pleural effusion, admitted for thoracentesis. Dr. Kapoor has been consulted. The patient is not on any diuretics currently. 2. Reason for the pericardial effusion is unknown. The patient did have a pericardial window placed in [facility] in October of 2018 and she is stable from that point of view. 3. Type 2 diabetes mellitus, insulin-dependent, controlled. Continue home medications. 4. 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 Medications continued, blood count checked and they are fairly within normal limits. [place], [place] PATIENT HISTORY AND PHYSICAL EXAM NAME: AYDEN VERDUZCO UNIT #: [id number] ROOM: [facility] DOCTOR: ABRAHAN ROMANO MD BIRTHDATE: [birth year] ABRAHAN ROMANO MD CM:HISPHYS:PATIENT HISTORY AND PHYSICAL EXAMINATION 1447 1527 ABRAHAN ROMANO MD 12/04/18 1526 interface
--- NOTE | ~2018-12-04 | PR ---
[place], [place] PROGRESS NOTE NAME: AYDEN VERDUZCO [facility] #: [id number] UNIT #: [id number] ROOM: 402 DOCTOR: KRISH CHANG MDBERENICE BIRTHDATE: [birth year] DOS: 12/06/2018 PULMONARY PROGRESS NOTE SUBJECTIVE: The patient has been noted comfortable at this time, has thoracentesis done yesterday with large amount of pleural fluid removed, right pleural space. She has not been noted any symptoms of chest pain, fever, chills, or any hemoptysis. Denies symptoms of nausea. The patient reported improvement in symptoms of shortness of breath. No complications noted post thoracentesis. The patient denies symptoms of coughing or wheezing. The patient denies symptoms of headache, diplopia, nausea, vomiting, diarrhea, abdominal pain, hematemesis, melena, hematochezia, or pain of the lower extremities. OBJECTIVE: VITAL SIGNS: The vital signs of the patient, which were recorded, has normal temperature, respiratory rate is 18, heart rate is 86, and blood pressure is 128/42. The pulse oxygen saturation was recorded as 98% saturation at rest on room air. HEENT: On examination, no acute change. NECK: Supple. CARDIOVASCULAR SYSTEM: S1, S2 audible. LUNGS: Noted clear lungs bilaterally on auscultation. ABDOMEN: Soft, obese, nontender. EXTREMITIES: No acute change. CENTRAL NERVOUS SYSTEM: Cranial nerves 2-12 intact. MUSCULOSKELETAL: Without any acute deformities. VISIBLE SKIN: No lesions or rashes. LABORATORY DATA: Pleural fluid analysis, cell count noted a total of 782 WBCs with 60% macrophages and 25% lymphocytes. Chemistry of the pleural fluid was noted consistent with an exudative effusion based on the cholesterol of 81, total protein of 3.2, LDH of 180. The pH is noted as 7.41. Albumin is 1.9. IMPRESSION: The patient with an exudative pleural fluid noted, etiology unclear, status post thoracentesis; resolution of the acute respiratory symptoms. At this time, the culture of the patient, no bacterial growth. Cytology was pending. PLAN OF MANAGEMENT: Monitoring of the pleural fluid as an outpatient. Outpatient assessment was recommended. Acid fast also sent yesterday as well because of exudative effusion. Other additional treatment changes will be ordered based on progression of the illness. The patient has been considered for home discharge today by Dr. Kylah Pino. [place], [place] PROGRESS NOTE NAME: AYDEN VERDUZCO UNIT #: [id number] ROOM: [facility] DOCTOR: BERENICE BECKWITH MD BIRTHDATE: [birth year] BERENICE RUTHERFORD MD CM:PNTRANS 1233 0029 BERENICE CHANG MD 12/18/18 1138 interface
--- NOTE | ~2018-12-04 | PR ---
[place], [place] PROGRESS NOTE NAME[id number] UNIT #: [id number] ROOM: 402 DOCTOR: ABRAHAN ROMANO MD BIRTHDATE: [birth year] DOS: 12/05/2018 SUBJECTIVE: The patient is not having any new complaints. She was waiting for Dr. Kapoor to come in. OBJECTIVE: VITAL SIGNS: Pressure is 144/63, pulse of 95, respirations 18, temperature 98.9. LUNGS: Clear. HEART: Regular. ABDOMEN: Obese, soft. EXTREMITIES: Without any edema. ASSESSMENT AND PLAN: 1. Hypokalemia, corrected. Awaiting labs. 2. Large pleural effusion, awaiting Emelia's input for possible thoracentesis. The patient can be discharged to home after thoracentesis. 3. Chronic myelogenous leukemia, on chemotherapy. Continue medications. ABRAHAN ROMANO MD CM:PNTRANS [id number] ABRAHAN ROMANO MD 12/06/18 0556 interface
--- NOTE | ~2018-12-04 | CON ---
[place], [place] REPORT OF CONSULTATION NAME: AYDEN VERDUZCO [facility] #: [id number] UNIT #: [id number] ROOM: 402 DOCTOR: BERENICE BECKWITH MD BIRTHDATE: [birth year] DOS: 12/05/2018 PULMONARY CONSULTATION, EVALUATION, AND MANAGEMENT CONSULTATION REQUESTED BY: Kylah Pino M.D. REASON FOR CONSULTATION: For assessment of recurrent pleural effusion and shortness of breath. HISTORY OF PRESENT ILLNESS: This is a 73-year-old white female patient, who has been noted ongoing symptoms, shortness breath for the past few weeks. She has been admitted in [facility] and underwent thoracentesis on the left side about a month ago. She was noted poor historian, unable to give me a good history of her illnesses. The patient with history of aplastic anemia, pancytopenia. She has been seen by medical oncologist, Dr. Rain, in [facility] in [place], [place]. The patient has a chest x-ray done as an outpatient, which was noted with evidence of moderate pleural fluid on the left side. The patient has admitted to the hospital by the primary care physician for further assessment. She does report symptoms of nonproductive cough at times. There were no symptoms of chest pain reported. PAST MEDICAL HISTORY: 1. Reported with history of pericardial effusion, pericardial window as per the patient and thoracentesis, which is stated by the patient. 2. Peripheral neuropathy with bilateral foot drop. 3. Benign essential hypertension. 4. Aplastic anemia with pancytopenia. 5. Type 2 diabetes mellitus. PAST SURGICAL HISTORY: Reportes as: 1. Pericardial window drainage about a month ago for pericardial effusion, details of pathologies, other reason for the current pericardial pleural fluid formation remains unknown. 2. As per the patient thoracentesis, left side, which was done in [facility] in 10/2018. 3. Left femur fracture, ORIF. 4. Right wrist surgery as well. CURRENT MEDICATIONS: The current medications administered during this hospitalization were noted as Protonix, losartan, Cymbalta, simvastatin, metoprolol tartrate, hydroxyzine, and potassium chloride. DRUG ALLERGIES: No known drug allergies. SOCIAL HISTORY: As stated by the patient. She is a nonsmoker lifetime, , has one child, lives at home. FAMILY HISTORY: Reported for malignancy, coronary artery disease, leukemia, esophageal cancer, and myocardial infarction. [place], [place] REPORT OF CONSULTATION NAME: AYDEN VERDUZCO UNIT #: [id number] ROOM: 402 DOCTOR: BERENICE BECKWITH MD BIRTHDATE: [birth year] REVIEW OF SYSTEMS: CONSTITUTIONAL SYMPTOMS: Noted with fatigue and tiredness with inability to ambulate. General weakness. EYES: Denies burning, redness, or tenderness. EARS, NOSE, THROAT SYMPTOMS: Denies sore throat, hoarseness, otalgia, or postnasal drainage. CARDIOVASCULAR SYSTEM: Denies anginal pain, edema, or pain of the lower extremities. GASTROINTESTINAL SYMPTOMS: No dysphagia, nausea, vomiting, diarrhea, abdominal pain, hematemesis, melena, or hematochezia. SKIN: Denies abnormal lesions or rashes. MUSCULOSKELETAL SYMPTOMS: No joint pain, redness, or tenderness. Remaining systems were reviewed and they were noted all negative. PHYSICAL EXAMINATION: GENERAL: This is a 73-year-old female noted comfortably sitting on the bed without any acute distress this morning of assessment. Height of 5 feet 4 inches, weight of 175 pounds, and BMI of 30.5. VITAL SIGNS: Normal temperature since admission, respiratory rate 18-20, heart rate 70-83, and blood pressure 143/57-134/61. Pulse oxygen saturation on 2 liters nasal cannula is 100% saturation. HEENT: Examination shows head was atraumatic. Eyes nonicterus. NECK: Supple. Decreased posterior pharyngeal space, high tongue base and crowding of soft tissue structures. CARDIOVASCULAR SYSTEM: S1, S2. Absent breath sounds on the left lower chest auscultation. There were no wheezing or crackles heard in the remaining lungs. ABDOMEN: Soft with moderate obesity, bowel sounds present. EXTREMITIES: Without any acute edema. MUSCULOSKELETAL: Without any gross deformities. CENTRAL NERVOUS SYSTEM: History of feet drop. There was no cranial nerve deficits noted 2-12. IMAGING AND LABORATORY DATA: Since admission. Chest x-ray of the patient on 11/30/2018 noted with moderate-sized left pleural effusion. BMP that was done yesterday, glucose was 159, BUN and creatinine were normal. CBC of the patient yesterday, WBC count was 2.7, hemoglobin was 9.5, and platelet count was normal. The CBC of 12/05/2018, WBC count is 2.9, hemoglobin is 10.7, and platelet count remains normal. The differential was noted as 44% neutrophils. IMPRESSION: 1. The patient has been currently admitted to the hospital noted with recurrent pleural fluid at this time. The etiology is unclear at this time. The patient has a CT scan of chest, which was done on 10/17/2018 at that time was noted with a large pericardial effusion, new finding as well as left pleural fluid as well with small right pleural fluid. The differential could be considered cardiac related with atypical presentation of eft pleural fluid versus malignant process, chronic infections in the differential diagnosis to be kept in mind. She has been noted with chronic immunosuppression with history of aplastic anemia with leukopenia. She is not manifesting any signs of acute major [place], [place] REPORT OF CONSULTATION NAME: AYDEN VERDUZCO UNIT #: [id number] ROOM: 402 DOCTOR: BERENICE BECKWITH MD BIRTHDATE: [birth year] infection at the present time. 2. The patient with history of moderate obesity as well with history of essential hypertension and peripheral neuropathy. PLAN OF MANAGEMENT: At this time, I performed the ultrasound of the chest, left side; moderate size left pleural fluid was noted, which will be removed with thoracentesis. All the testings repeated for infection, malignancy, and others. Continue the other previous medical management, symptomatic management as well with other additional treatment changes will be done based on progression of illness. The patient may require repeat echocardiogram to assess the resolution of previous large pericardial effusion after pericardial window without any recurrence. Other therapy, plan of management, and treatment with other changes to be made based on progression of illness. Monitoring of the leukopenia as well. No acute intervention will be necessary. Thanks for allowing me to participate in care of this patient. BERENICE RUTHERFORD MD CM:CONSTR:REPORT OF CONSULTATION 1421 12/06/18 0252 interface
--- NOTE | ~2018-12-04 | DS ---
[place], [place] DISCHARGE SUMMARY NAME: AYDEN VERDUZCO [facility] #: [id number] UNIT #: [id number] ROOM: 402 DOCTOR: ABRAHAN ROMANO MD BIRTHDATE: [birth year] DOS: 12/06/2018 DIAGNOSES: 1. Large left-sided pleural effusion, status post thoracentesis about 1000 mL, most likely transudate. 2. History of recent pericardial effusion, status post pericardial window. 3. Chronic myeloid leukemia. 4. Type 2 diabetes mellitus. 5. Benign hypertension. 6. Chronic back pain. 7. Spinal stenosis, radiculopathy with bilateral foot drop. 8. Hypokalemia. HOSPITAL COURSE: This patient is very well known to us, comes in with complaints of increasing shortness of breath. A chest x-ray done as an outpatient showed a large left-sided pleural effusion. The patient was admitted. Dr. Kapoor was consulted. Thoracentesis was performed with 1000 mL of fluid was removed. No bacterial growth noticed on the pleural fluid. The patient felt better after the fluid was removed and she is no longer having any complaints. Potassium level was low and supplementation was given and the levels have come up. The patient is not having any new problems, so the plan is to discharge her to home today to followup as an outpatient. DISCHARGE MEDICATIONS: Potassium 10 daily, Zanaflex 4 mg daily p.r.n., multivitamin 1 tablet daily, simvastatin 10 at bedtime, duloxetine 60 daily, calcium 500 t.i.d., Colace 100 b.i.d., Orange 5 b.i.d., NovoLog 70/30, 25 units twice a day, Zofran 8 mg twice a day, hydroxyzine 10 b.i.d. p.r.n. for allergies, promethazine 25 daily p.r.n. for nausea, Zyrtec 5 daily, losartan 100 mg daily, metoprolol 12.5 b.i.d., Protonix 40 daily, Imbruvica 420 mg daily. [place], [place] DISCHARGE SUMMARY NAME: AYDEN VERDUZCO [facility] #: [id number] UNIT #: [id number] ROOM: 402 DOCTOR: ABRAHAN ROMANO MD BIRTHDATE: [birth year] ABRAHAN ROMANO MD CM:JEWELS 0830 23 ABRAHAN ROMANO MD 12/06/18 1725 interface
--- NOTE | ~2018-12-04 | PR ---
[place], [place] PROGRESS NOTE [id number] #: [id number] ROOM: 402 DOCTOR: ABRAHAN ROMANO MD BIRTHDATE: [birth year] DOS: 12/06/2018 SUBJECTIVE: The patient is doing well. Her shortness of breath has improved after the thoracentesis; about a liter of fluid was removed. OBJECTIVE: VITAL SIGNS: Blood pressure is 128/42, pulse of 76, respirations 18, temperature 98.9. LUNGS: Clear. HEART: Regular. ABDOMEN: Obese, soft. EXTREMITIES: Without any edema. LABORATORY DATA: None available today. ASSESSMENT AND PLAN: 1. Hypokalemia, which has corrected following supplementation. 2. Large left-sided pleural effusion, status post thoracentesis, 1000 mL. Culture shows no bacterial growth. This is most likely a transudate. The plan is to discharge the patient to home today. ABRAHAN ROMANO MD CM:PNTRANS 0816 0027 ABRAHAN ROMANO MD 12/07/18 0027 interface
--- NOTE | ~2018-12-04 | PROC NOTE ---
[place], [place] PROCEDURE NOTE NAME: AYDEN VERDUZCO UNIT #: [id number] ROOM: 402 DOCTOR: KRISH CHANG MD,BERENICE BIRTHDATE: [birth year] DOS: 12/05/2018 PREOPERATIVE DIAGNOSIS: Recurrent left pleural fluid. POSTOPERATIVE DIAGNOSES: Removal of serosanguineous 1000 mL of pleural fluid left pleural space without any difficulty. PROCEDURE DESCRIPTION: Informed consent obtained for the patient. The patient was placed in sitting position. Fluid was already marked, site of thoracentesis right lateral chest wall. Skin was cleaned, corrected diffusion, 1% lidocaine was administered in the skin and intercostal space during admission of local anesthetic. The patient left pleural space was entered. A small amount of fluid was aspirated. After that incision given in the skin, the thoracentesis catheter introduced through the incision into the pleural space without any difficulty. A total of 1000 mL of pleural fluid was removed without any difficulty from the left pleural space. Chest x-ray done post-procedure does not show evidence of pneumothorax. Pleural fluid sent for all the appropriate testing including all the necessary cultures and other tests needed. BERENICE RUTHERFORD MD CM:PROCNOTE:PROCEDURE NOTE 1423 0239 BERENICE CHANG MD
[~2018-12-04 12:06] MED LIST changes: -K-TAB10 MEQ PO
[2018-12-04 12:27] VITALS: BP 110/45
--- NOTE | 2018-12-04 12:27 | NUR ---
A 73, admitted to , under the services of ABRAHAN Browne MD with a diagnosis of pleural effusion. Chief complaint is pt was at DR Pino office tuesday and was supposed to come to hospital for admission but refused, so she came in today. per pt she has been sob since being released from the hospital 4 weeks ago Patient arrived via wheel chair Monitor applied. Initial assessment completed. Vital signs taken and recorded. ABRAHAN BROWNE MD notified of admission to the unit. Orders received. See assessment for past medical history, medications and allergies. Patient and/or family oriented to unit. [facility] Clothing/patient valuable form completed. MER MORRELL
--- NOTE | 2018-12-04 15:13 | NUR ---
DR ASHTON NOTIFIED OF CONSULT
[2018-12-04 15:45] LABS: HEMATOCRIT 30.5 % (37.0-47.0); HEMOGLOBIN 9.5 g/dl (12.0-16.0); MEAN CELL VOLUME 91.6 fl (81.0-99.0); MEAN CORPUSCULAR HGB 28.5 pg (27.0-31.0); MEAN CORPUSCULAR HGB CONC 31.1 g/dl (33.0-37.0); MEAN PLATELET VOLUME 10.6 fl (9.6-12.3); PLATELET COUNT AUTOMATED 203 10*3/uL (130-400); RED BLOOD COUNT 3.33 10*6/uL (4.10-5.10); RED CELL DISTRI WIDTH 13.7 % (0-14.5); WHITE BLOOD COUNT 2.7 10*3/uL (4.8-10.8)
[2018-12-04 16:00] VITALS: BP 134/63
[2018-12-04 16:10] LABS: BUN 14 mg/dl (7-24); CHLORIDE 104 mmol/L (98-107); CREATININE 0.84 mg/dL (0.55-1.02); POTASSIUM 4.1 mmol/L (3.5-5.1); SODIUM 137 mmol/L (136-145)
[2018-12-04 16:24] LABS: BASOPHILS 2 % (0-1); TOTAL CELLS COUNTED 100 #CELLS
[2018-12-04 16:25] LABS: PLATELET SUFFICIENCY NORMAL (NORMAL); POLYCHROMASIA SLIGHT
[2018-12-04 20:00] VITALS: BP 134/61
[2018-12-05] VITALS: BP 144/63
[2018-12-05 08:00] VITALS: BP 136/58
[2018-12-05 08:33] LABS: HEMATOCRIT 34.1 % (37.0-47.0); HEMOGLOBIN 10.7 g/dl (12.0-16.0); MEAN CELL VOLUME 89.5 fl (81.0-99.0); MEAN CORPUSCULAR HGB 28.1 pg (27.0-31.0); MEAN CORPUSCULAR HGB CONC 31.4 g/dl (33.0-37.0); PLATELET COUNT AUTOMATED 240 10*3/uL (130-400); RED BLOOD COUNT 3.81 10*6/uL (4.10-5.10); RED CELL DISTRI WIDTH 13.6 % (0-14.5); WHITE BLOOD COUNT 2.9 10*3/uL (4.8-10.8)
[2018-12-05 08:47] LABS: BUN 11 mg/dl (7-24); CHLORIDE 103 mmol/L (98-107); CREATININE 0.78 mg/dL (0.55-1.02); POTASSIUM 4.4 mmol/L (3.5-5.1); SODIUM 139 mmol/L (136-145)
--- NOTE | 2018-12-05 09:00 | NUR ---
Legal Recovery Specialist in to talk to patient. Patient states lives at home alone with her family checking in on her. There are 0 steps in the home. Physician: Dr. Kylah Pino [facility]acy: [facility] Home health services: [facility] aides for 3 hours 3 times a week Patient's level of ADLs: MINIMAL ASSIST Patient has working utilities: yes DME: walker, wheelchair Follow-up physician's appointment after d/c: she prefers to make her own follow up appt after discharge Does patient want to access PORTAL?: no Discharge plan discussed with patient. She lives at home alone with her family. She needs minimal assistance with her ADLs and ambulates with a walker or gets around in a wheelchair. Discussed home health care services and she currently has [facility] aides 3 hours 3 times a week that she will continue with upon discharge. When medically stable she will be discharged to home. Yesenia Oliver
[2018-12-05 09:09] LABS: ATYPICAL LYMPHS 1 % (0-0); TOTAL CELLS COUNTED 100 #CELLS
[2018-12-05 09:10] LABS: PLATELET SUFFICIENCY NORMAL (NORMAL)
--- NOTE | 2018-12-05 09:30 | NUR ---
DR RUTHERFORD IN. THOROCENTESIS COMPLETED. 1000CC TANESHA FLUID REMOVED FROM LEFT LUNG. PT TOLERATED WELL. FLUID SENT TO LAB. CALL LIGHT IN REACH. WILL MONITOR.
[2018-12-05 10:05] LABS: BODY FLUID WBC 782 /uL
[2018-12-05 11:14] LABS: BF LYMPHOCYTES 25 %; BF MACROPHAGES 50 %; BF MESOTHELIALS 17 %; BF MONOCYTES 1 %; BF NEUTROPHILS 5 %
[2018-12-05 12:00] VITALS: BP 143/57
[2018-12-05 16:00] VITALS: BP 138/59
--- NOTE | 2018-12-05 16:32 | NUR ---
PHYSICAL THERAPY Nursing screen received. Chart review complete. Recommend normal daily mobility with nursing prn. If difficulties with mobilty arise, please order PT when medically appropriate. Thank you. Antoinette Moss,PT
[2018-12-05 20:00] VITALS: BP 137/70
[2018-12-06] VITALS: BP 128/42
--- NOTE | 2018-12-06 04:38 | NUR ---
24 HR chart check completed.
--- NOTE | 2018-12-06 08:00 | NUR ---
Patient resting quietly with no c/o discomfort. Respirations easy and regular. Vital signs stable. No overt distress. ALE DAVIDSON R
[2018-12-06] MEDS ORDERED: K-TAB10 MEQ PO (08:19)
--- NOTE | 2018-12-06 10:09 | NUR ---
Discharge instructions reviewed with patient/family. Patient receptive and verbalizes understanding. Follow-up care arranged. Written instructions given to patient/family. ALE DAVIDSON
--- NOTE | 2018-12-06 13:10 | NUR ---
Nursing screen received and patient discharged before screen could be completed. Stephanie Cotter OTR/l
[2018-12-06 15:06] LABS: ACID FAST SPEC PROCESSING Direct Inoculation (.)
[2019-01-17 17:05] LABS: ACID FAST CULTURE Negative (.)
== END 2018-12-06 10:09 | disposition home or self-care (01) | DRG 187 ==
LOC: 4E 12:06
PROVIDERS: Internal Medicine Critical Care Medicine; ADMIT Internal Medicine
PROC: 0W9B3ZZ Drainage of Left Pleural Cavity, Percutaneous Approach (ICD-10-PCS; principal; 2018-12-05)
DX: J90 Pleural effusion, not elsewhere classified (principal); C92.10 Chronic myeloid leukemia, BCR/ABL-positive, not having achieved remission; E87.6 Hypokalemia; I10 Essential (primary) hypertension; G89.29 Other chronic pain; M54.9 Dorsalgia, unspecified; M48.00 Spinal stenosis, site unspecified; E66.8 Other obesity; M54.10 Radiculopathy, site unspecified; E11.42 Type 2 diabetes mellitus with diabetic polyneuropathy; Z79.899 Other long term (current) drug therapy; Z79.4 Long term (current) use of insulin; Z92.21 Personal history of antineoplastic chemotherapy; Z82.49 Family history of ischemic heart disease and other diseases of the circulatory system; Z80.6 Family history of leukemia; Z80.0 Family history of malignant neoplasm of digestive organs; Z68.30 Body mass index [BMI] 30.0-30.9, adult

== ENCOUNTER → 2019-05-28 | Outpatient (CLI) | payer OTHER ==
[~2019-05-28] MED LIST changes: +K-TAB10 MEQ PO
[2019-05-28 14:41] LABS: EOS # 0.1 10*3/uL (0.0-0.4); HEMATOCRIT 33.6 % (37.0-47.0); HEMOGLOBIN 11.5 g/dl (12.0-16.0); LYMPH # 0.7 10*3/uL (1.3-4.4); LYMPH % 15.6 % (27.0-41.0); MEAN CELL VOLUME 93.3 fl (81.0-99.0); MEAN CORPUSCULAR HGB 31.9 pg (27.0-31.0); MEAN CORPUSCULAR HGB CONC 34.2 g/dl (33.0-37.0); MEAN PLATELET VOLUME 9.9 fl (9.6-12.3); MONO # 0.5 10*3/uL (0.1-1.0); MONO % 9.7 % (3.0-9.0); NEUT # 3.3 10*3/uL (2.3-7.9); NEUT % 71.5 % (47.0-73.0); PLATELET COUNT AUTOMATED 257 10*3/uL (130-400); RED CELL DISTRI WIDTH 14.3 % (0-14.5); WHITE BLOOD COUNT 4.6 10*3/uL (4.8-10.8)
[2019-05-28 14:59] LABS: ALBUMIN 3.6 gm/dl (3.1-4.5); ALKALINE PHOSPHATASE 150 U/L (45-117); BUN 22 mg/dl (7-24); CHLORIDE 104 mmol/L (98-107); CHOLESTEROL 203 mg/dL (<200); CREATININE 0.92 mg/dL (0.55-1.02); HDL CHOLESTEROL 33 mg/dl (40-60); LDL CHOLESTEROL 125 mg/dL (9-159); POTASSIUM 3.8 mmol/L (3.5-5.1); SGOT/AST 14 IU/L (3-35); SGPT/ALT 18 U/L (12-78); SODIUM 136 mmol/L (136-145); TOTAL PROTEIN 6.4 gm/dL (6.4-8.2); TRIGLYCERIDES 223 mg/dl (<150); VLDL CHOLESTEROL 45 mg/dL (6-40)
[2019-05-28 15:06] LABS: VITAMIN D, 25-HYDROXY 15.2 ng/mL (30-100)
[2019-05-28 15:10] LABS: FREE T4 0.88 ng/dl (0.76-1.46)
== END | disposition home or self-care (01) ==
LOC: CT 13:00 → LAB 13:05
PROVIDERS: Internal Medicine
DX: Z51.11 Encounter for antineoplastic chemotherapy (principal); C91.90 Lymphoid leukemia, unspecified not having achieved remission; R16.1 Splenomegaly, not elsewhere classified; K80.20 Calculus of gallbladder without cholecystitis without obstruction; I31.3 Pericardial effusion (noninflammatory); R91.8 Other nonspecific abnormal finding of lung field; K63.89 Other specified diseases of intestine; I10 Essential (primary) hypertension; E11.9 Type 2 diabetes mellitus without complications; E78.2 Mixed hyperlipidemia; E55.9 Vitamin D deficiency, unspecified; E11.10 Type 2 diabetes mellitus with ketoacidosis without coma; D59.1 Other autoimmune hemolytic anemias

== ENCOUNTER 2019-11-14 20:04 | Emergency (ER) | payer OTHER ==
[2019-11-14 21:27] LABS: EOS # 0.1 10*3/uL (0.0-0.4); HEMATOCRIT 32.1 % (37.0-47.0); HEMOGLOBIN 11.1 g/dl (12.0-16.0); LYMPH # 1.3 10*3/uL (1.3-4.4); LYMPH % 22.8 % (27.0-41.0); MEAN CELL VOLUME 92.8 fl (81.0-99.0); MEAN CORPUSCULAR HGB 32.1 pg (27.0-31.0); MEAN CORPUSCULAR HGB CONC 34.6 g/dl (33.0-37.0); MEAN PLATELET VOLUME 9.3 fl (9.6-12.3); MONO # 0.7 10*3/uL (0.1-1.0); MONO % 11.4 % (3.0-9.0); NEUT # 3.7 10*3/uL (2.3-7.9); NEUT % 64.6 % (47.0-73.0); PLATELET COUNT AUTOMATED 215 10*3/uL (130-400); RED BLOOD COUNT 3.46 10*6/uL (4.10-5.10); RED CELL DISTRI WIDTH 13.4 % (0-14.5); WHITE BLOOD COUNT 5.8 10*3/uL (4.8-10.8)
[2019-11-14 21:55] LABS: BUN 19 mg/dl (7-24); CHLORIDE 110 mmol/L (98-107); CREATININE 0.92 mg/dL (0.55-1.02); SODIUM 140 mmol/L (136-145)
== END 2019-11-15 03:00 | disposition short-term general hospital (02) ==
LOC: ED 20:04
PROVIDERS: Emergency Medicine
DX: T18.128A Food in esophagus causing other injury, initial encounter (principal); I10 Essential (primary) hypertension; J45.909 Unspecified asthma, uncomplicated; E11.9 Type 2 diabetes mellitus without complications; F32.9 Major depressive disorder, single episode, unspecified; F41.9 Anxiety disorder, unspecified; X58.XXXA Exposure to other specified factors, initial encounter; Y93.89 Activity, other specified; Y92.89 Other specified places as the place of occurrence of the external cause; Y99.8 Other external cause status

== ENCOUNTER 2020-10-07 19:16 | Observation (INO) | payer OTHER ==
[~2020-10-07] VITALS: Ht 162.6 cm; Wt 80.5 kg
[2020-10-07 19:26] VITALS: BP 147/56
[2020-10-07] MEDS ORDERED: PROTONIX40 MG PO ×2 (20:37)
[2020-10-07 23:40] VITALS: BP 153/58
[2020-10-08] MEDS ORDERED: AMLODIPINE BES2.5 MG PO (00:07)
[2020-10-08 06:46] LABS: HEMATOCRIT 34.5 % (37.0-47.0); MEAN CELL VOLUME 91.5 fl (81.0-99.0); MEAN CORPUSCULAR HGB CONC 32.8 g/dl (33.0-37.0); MEAN PLATELET VOLUME 10.1 fl (9.6-12.3); PLATELET COUNT AUTOMATED 182 10*3/uL (130-400); RED BLOOD COUNT 3.77 10*6/uL (4.10-5.10); WHITE BLOOD COUNT 9.3 10*3/uL (4.8-10.8)
[2020-10-08 07:11] LABS: BUN 18 mg/dl (7-24); CHLORIDE 106 mmol/L (98-107); CREATININE 0.69 mg/dL (0.55-1.02); SODIUM 138 mmol/L (136-145)
[2020-10-08 07:38] LABS: ATYPICAL LYMPHS 7 % (0-0); PLATELET SUFFICIENCY NORMAL (NORMAL); TOTAL CELLS COUNTED 100 #CELLS
[2020-10-08 08:00] VITALS: BP 130/56
[2020-10-08 14:12] VITALS: BP 118/79
[2020-10-08 15:20] VITALS: BP 134/59
[2020-10-08 15:35] VITALS: BP 131/61
[2020-10-08 15:48] VITALS: BP 126/60
== END 2020-10-08 16:41 | disposition home or self-care (01) ==
LOC: ED 19:16 → 4E 21:23 → EDHOLD 21:23 → 4E 21:23
PROVIDERS: ADMIT Internal Medicine; ATTEND Internal Medicine
DX: T17.228A Food in pharynx causing other injury, initial encounter (principal); K21.00 Gastro-esophageal reflux disease with esophagitis, without bleeding; F41.1 Generalized anxiety disorder; F32.9 Major depressive disorder, single episode, unspecified; M48.00 Spinal stenosis, site unspecified; M54.10 Radiculopathy, site unspecified; M54.5 Low back pain; G89.29 Other chronic pain; C92.10 Chronic myeloid leukemia, BCR/ABL-positive, not having achieved remission; I31.3 Pericardial effusion (noninflammatory); J90 Pleural effusion, not elsewhere classified; R13.10 Dysphagia, unspecified; E11.9 Type 2 diabetes mellitus without complications; I10 Essential (primary) hypertension; W45.8XXA Other foreign body or object entering through skin, initial encounter; Y93.89 Activity, other specified; Y92.89 Other specified places as the place of occurrence of the external cause; Y99.8 Other external cause status; Z20.822 Contact with and (suspected) exposure to COVID-19; Z90.49 Acquired absence of other specified parts of digestive tract; Z98.890 Other specified postprocedural states

== ENCOUNTER → 2020-12-29 | Outpatient (CLI) | payer OTHER ==
[~2020-12-29] MED LIST changes: +AMLODIPINE BES2.5 MG PO
[2020-12-29 16:06] LABS: HEMATOCRIT 35.1 % (37.0-47.0); MEAN CELL VOLUME 95.6 fl (81.0-99.0); MEAN CORPUSCULAR HGB 32.2 pg (27.0-31.0); MEAN CORPUSCULAR HGB CONC 33.6 g/dl (33.0-37.0); MEAN PLATELET VOLUME 10.2 fl (9.6-12.3); PLATELET COUNT AUTOMATED 181 10*3/uL (130-400); RED BLOOD COUNT 3.67 10*6/uL (4.10-5.10); RED CELL DISTRI WIDTH 13.5 % (0-14.5); WHITE BLOOD COUNT 14.7 10*3/uL (4.8-10.8)
[2020-12-29 16:25] LABS: ATYPICAL LYMPHS 6 % (0-0); TOTAL CELLS COUNTED 100 #CELLS
[2020-12-29 16:26] LABS: PLATELET SUFFICIENCY NORMAL (NORMAL)
[2020-12-29 16:36] LABS: ALBUMIN 3.7 gm/dl (3.1-4.5); BUN 17 mg/dl (7-24); CHLORIDE 103 mmol/L (98-107); CHOLESTEROL 205 mg/dL (<200); CREATININE 0.95 mg/dL (0.55-1.02); POTASSIUM 4.1 mmol/L (3.5-5.1); SGOT/AST 30 IU/L (3-35); SGPT/ALT 21 U/L (12-78); SODIUM 137 mmol/L (136-145); TRIGLYCERIDES 367 mg/dl (<150)
[2020-12-29 16:44] LABS: ALKALINE PHOSPHATASE 136 U/L (45-117); FREE T4 1.17 ng/dl (0.76-1.46); LDL CHOLESTEROL 100 mg/dL (9-159); TOTAL PROTEIN 6.5 gm/dL (6.4-8.2)
[2020-12-29 16:57] LABS: VITAMIN D, 25-HYDROXY 19.4 ng/mL (30-100)
== END | disposition home or self-care (01) ==
LOC: LAB 15:39
PROVIDERS: ATTEND Internal Medicine
DX: I10 Essential (primary) hypertension (principal); E11.9 Type 2 diabetes mellitus without complications; E78.2 Mixed hyperlipidemia; E55.9 Vitamin D deficiency, unspecified; Z00.01 Encounter for general adult medical examination with abnormal findings

== ENCOUNTER 2021-05-17 09:08 | Inpatient (IN) | payer OTHER ==
[~2021-05-17] VITALS: Wt 65.3 kg
[2021-05-17 09:10] VITALS: BP 127/41
[2021-05-17 09:33] LABS: MEAN CORPUSCULAR HGB 31.3 pg (27.0-31.0); MEAN CORPUSCULAR HGB CONC 28.8 g/dl (33.0-37.0); MEAN PLATELET VOLUME 10.2 fl (9.6-12.3); NUCLEATED RED BLOOD CELL 0.2 % (0.0-0.0); NUCLEATED RED BLOOD CELL 0.2 10*3/uL (0.0-0.0); PLATELET COUNT AUTOMATED 250 10*3/uL (130-400); RED BLOOD COUNT 1.34 10*6/uL (4.10-5.10); RED CELL DISTRI WIDTH 22.9 % (0-14.5)
[2021-05-17 09:39] LABS: WHITE BLOOD COUNT 114.1 10*3/uL (4.8-10.8)
[2021-05-17 09:40] LABS: HEMATOCRIT 14.6 % (37.0-47.0)
[2021-05-17 09:46] LABS: ALBUMIN 3.2 gm/dl (3.1-4.5); BUN 42 mg/dl (7-24); CHLORIDE 102 mmol/L (98-107); CREATININE 0.92 mg/dL (0.55-1.02); POTASSIUM 4.5 mmol/L (3.5-5.1); SGOT/AST 54 IU/L (3-35); SGPT/ALT 21 U/L (12-78); SODIUM 133 mmol/L (136-145); TOTAL PROTEIN 6.3 gm/dL (6.4-8.2)
[2021-05-17 09:51] LABS: ALKALINE PHOSPHATASE 99 U/L (45-117)
[2021-05-17 09:53] LABS: BASOPHILS 1 % (0-1); PLATELET SUFFICIENCY NORMAL (NORMAL); TOTAL CELLS COUNTED 100 #CELLS
[2021-05-17 09:54] LABS: POLYCHROMASIA SLIGHT
[2021-05-17 09:56] LABS: ROULEAUX SLIGHT; STOMATOCYTE FEW
[2021-05-17 12:54] VITALS: BP 118/52
[2021-05-17 16:00] VITALS: BP 111/51
[2021-05-17 20:53] VITALS: BP 105/46
[2021-05-18] VITALS (47 sets, daily range): BP systolic 109–159; BP diastolic 31–64
[2021-05-18 07:37] LABS: MEAN CORPUSCULAR HGB 31.1 pg (27.0-31.0); MEAN CORPUSCULAR HGB CONC 29.7 g/dl (33.0-37.0); MEAN PLATELET VOLUME 10.3 fl (9.6-12.3); NUCLEATED RED BLOOD CELL 0.3 % (0.0-0.0); NUCLEATED RED BLOOD CELL 0.4 10*3/uL (0.0-0.0); PLATELET COUNT AUTOMATED 244 10*3/uL (130-400); RED BLOOD COUNT 1.64 10*6/uL (4.10-5.10); RED CELL DISTRI WIDTH 18.9 % (0-14.5)
[2021-05-18 07:40] LABS: MEAN CELL VOLUME 104.9 fl (81.0-99.0)
[2021-05-18 07:44] LABS: WHITE BLOOD COUNT 119.6 10*3/uL (4.8-10.8)
[2021-05-18 07:45] LABS: HEMATOCRIT 17.2 % (37.0-47.0)
[2021-05-18 07:54] LABS: BUN 35 mg/dl (7-24); CHLORIDE 106 mmol/L (98-107); CREATININE 1.07 mg/dL (0.55-1.02); SODIUM 135 mmol/L (136-145)
[2021-05-18 08:53] LABS: TOTAL CELLS COUNTED 100 #CELLS
[2021-05-18 08:54] LABS: PLATELET SUFFICIENCY NORMAL (NORMAL); POLYCHROMASIA SLIGHT
[2021-05-18 13:46] LABS: HEMATOCRIT 22.2 % (37.0-47.0); MEAN CORPUSCULAR HGB CONC 30.6 g/dl (33.0-37.0); MEAN PLATELET VOLUME 10.1 fl (9.6-12.3); NUCLEATED RED BLOOD CELL 0.4 % (0.0-0.0); NUCLEATED RED BLOOD CELL 0.4 10*3/uL (0.0-0.0); PLATELET COUNT AUTOMATED 251 10*3/uL (130-400); RED BLOOD COUNT 2.27 10*6/uL (4.10-5.10); RED CELL DISTRI WIDTH 18.1 % (0-14.5)
[2021-05-18 13:50] LABS: MEAN CELL VOLUME 97.8 fl (81.0-99.0)
[2021-05-18 13:51] LABS: WHITE BLOOD COUNT 109.5 10*3/uL (4.8-10.8)
[2021-05-18 14:24] LABS: PLATELET SUFFICIENCY NORMAL (NORMAL); TOTAL CELLS COUNTED 100 #CELLS
[2021-05-18 14:25] LABS: BURR CELLS FEW; OVALOCYTES FEW
[2021-05-18 18:46] LABS: RETICULOCYTE % 12.05 % (0.50-2.50)
[2021-05-19 00:01] VITALS: BP 159/64
[2021-05-19 00:31] VITALS: BP 155/64
[2021-05-19 01:02] VITALS: BP 159/61
[2021-05-19 01:07] VITALS: BP 140/55
[2021-05-19 01:43] VITALS: BP 150/55
[2021-05-19 06:11] VITALS: BP 161/76
[2021-05-19 07:25] LABS: HEMATOCRIT 28.9 % (37.0-47.0); MEAN CORPUSCULAR HGB 27.9 pg (27.0-31.0); MEAN CORPUSCULAR HGB CONC 31.5 g/dl (33.0-37.0); NUCLEATED RED BLOOD CELL 0.2 10*3/uL (0.0-0.0); NUCLEATED RED BLOOD CELL 0.3 % (0.0-0.0); PLATELET COUNT AUTOMATED 209 10*3/uL (130-400); RED BLOOD COUNT 3.26 10*6/uL (4.10-5.10)
[2021-05-19 07:29] LABS: MEAN CELL VOLUME 88.7 fl (81.0-99.0)
[2021-05-19 07:31] LABS: WHITE BLOOD COUNT 73.5 10*3/uL (4.8-10.8)
[2021-05-19 07:36] LABS: CHLORIDE 108 mmol/L (98-107); POTASSIUM 3.6 mmol/L (3.5-5.1); SODIUM 139 mmol/L (136-145)
[2021-05-19 07:39] LABS: CREATININE 0.75 mg/dL (0.55-1.02)
[2021-05-19 08:00] LABS: BUN 22 mg/dl (7-24)
[2021-05-19] MEDS ORDERED: PANTOPRAZOLE SO40 MG PO (08:12)
[2021-05-19] MEDS ORDERED: AMLODIPINE BES2.5 MG PO (08:12)
[2021-05-19] MEDS ORDERED: LOSARTAN POTASS25 M1 PO (08:13)
[2021-05-19 08:43] LABS: TOTAL CELLS COUNTED 100 #CELLS
[2021-05-19 08:44] LABS: PLATELET SUFFICIENCY NORMAL (NORMAL); POLYCHROMASIA SLIGHT
[2021-05-19] MEDS ORDERED: ONDANSETRON8 MG PO (09:14)
== END 2021-05-19 10:36 | disposition home or self-care (01) | DRG 392 ==
LOC: ED 09:08 → EDHOLD 11:36
PROVIDERS: Internal Medicine Critical Care Medicine; Internal Medicine Hematology & Oncology; Student in an Organized Health Care Education/Training Program; ADMIT Internal Medicine; ATTEND Internal Medicine
PROC: 30233N1 Transfusion of Nonautologous Red Blood Cells into Peripheral Vein, Percutaneous Approach (ICD-10-PCS; principal; 2021-05-18)
DX: K52.9 Noninfective gastroenteritis and colitis, unspecified (principal); C91.10 Chronic lymphocytic leukemia of B-cell type not having achieved remission; F33.1 Major depressive disorder, recurrent, moderate; D64.9 Anemia, unspecified; J45.40 Moderate persistent asthma, uncomplicated; F41.1 Generalized anxiety disorder; I10 Essential (primary) hypertension; R91.8 Other nonspecific abnormal finding of lung field; E11.42 Type 2 diabetes mellitus with diabetic polyneuropathy; Z88.8 Allergy status to other drugs, medicaments and biological substances

== ENCOUNTER 2021-05-31 17:30 | Emergency (ER) | payer OTHER ==
[~2021-05-31 17:30] MED LIST changes: +LOSARTAN POTASS25 M1 PO; +ONDANSETRON8 MG PO; +PANTOPRAZOLE SO40 MG PO
[2021-05-31 19:09] LABS: ACT PARTIAL THROMBO TIME 22.5 SECONDS (20.0-32.1)
[2021-05-31 19:16] LABS: MEAN CELL VOLUME 94.5 fl (81.0-99.0); MEAN CORPUSCULAR HGB 30.1 pg (27.0-31.0); MEAN CORPUSCULAR HGB CONC 31.9 g/dl (33.0-37.0); MEAN PLATELET VOLUME 10.5 fl (9.6-12.3); NUCLEATED RED BLOOD CELL 0.1 10*3/uL (0.0-0.0); NUCLEATED RED BLOOD CELL 0.3 % (0.0-0.0); PLATELET COUNT AUTOMATED 185 10*3/uL (130-400); RED BLOOD COUNT 1.46 10*6/uL (4.10-5.10); RED CELL DISTRI WIDTH 27.9 % (0-14.5)
[2021-05-31 19:21] LABS: ALBUMIN 2.9 gm/dl (3.1-4.5); ALKALINE PHOSPHATASE 109 U/L (45-117); BUN 32 mg/dl (7-24); CHLORIDE 101 mmol/L (98-107); CREATININE 1.17 mg/dL (0.55-1.02); LIPASE 111 U/L (73-393); POTASSIUM 4.6 mmol/L (3.5-5.1); SGOT/AST 58 IU/L (3-35); SGPT/ALT 15 U/L (12-78); SODIUM 133 mmol/L (136-145); TOTAL PROTEIN 5.7 gm/dL (6.4-8.2)
[2021-05-31 19:23] LABS: WHITE BLOOD COUNT 39.1 10*3/uL (4.8-10.8)
[2021-05-31 19:24] LABS: HEMATOCRIT 13.8 % (37.0-47.0)
[2021-05-31 19:28] LABS: TROPONIN I < 0.015 ng/ml (<0.045)
[2021-05-31 20:38] LABS: PLATELET SUFFICIENCY LOW (NORMAL); TOTAL CELLS COUNTED 100 #CELLS
[2021-05-31 20:40] LABS: BURR CELLS FEW; POLYCHROMASIA SLIGHT
[2021-06-01] VITALS (8 sets, daily range): BP systolic 101–113; BP diastolic 39–52
[2021-06-01 02:41] LABS: HEMATOCRIT 14.2 % (37.0-47.0)
[2021-06-02] VITALS (10 sets, daily range): BP systolic 118–147; BP diastolic 35–51
[2021-06-02 04:20] LABS: MEAN CELL VOLUME 94.4 fl (81.0-99.0); MEAN CORPUSCULAR HGB CONC 31.8 g/dl (33.0-37.0); MEAN PLATELET VOLUME 10.7 fl (9.6-12.3); NUCLEATED RED BLOOD CELL 0.1 % (0.0-0.0); NUCLEATED RED BLOOD CELL 0.1 10*3/uL (0.0-0.0); PLATELET COUNT AUTOMATED 191 10*3/uL (130-400); RED CELL DISTRI WIDTH 25.7 % (0-14.5)
[2021-06-02 04:37] LABS: ALBUMIN 2.9 gm/dl (3.1-4.5); CREATININE 1.15 mg/dL (0.55-1.02); POTASSIUM 5.2 mmol/L (3.5-5.1); TOTAL PROTEIN 5.7 gm/dL (6.4-8.2)
[2021-06-02 05:12] LABS: ATYPICAL LYMPHS 4 % (0-0); PLATELET SUFFICIENCY NORMAL (NORMAL); POLYCHROMASIA MODERATE; TOTAL CELLS COUNTED 100 #CELLS
[2021-06-02 05:13] LABS: MICROCYTOSIS SLIGHT; STOMATOCYTE FEW
== END 2021-06-02 11:06 | disposition short-term general hospital (02) ==
LOC: ED 17:30
PROVIDERS: Emergency Medicine
DX: C91.10 Chronic lymphocytic leukemia of B-cell type not having achieved remission (principal); D64.9 Anemia, unspecified; R17 Unspecified jaundice; E66.9 Obesity, unspecified; E11.9 Type 2 diabetes mellitus without complications; I10 Essential (primary) hypertension; Z90.49 Acquired absence of other specified parts of digestive tract; Z79.899 Other long term (current) drug therapy; Z68.34 Body mass index [BMI] 34.0-34.9, adult; Z79.4 Long term (current) use of insulin